=== PATIENT | female | born 1985 | race Caucasian/White ===

== ENCOUNTER 2016-09-27 07:20 | Inpatient (IN) | payer OTHER ==
[2016-09-27 08:21] VITALS: BMI 32.5
[2016-09-27] MEDS ORDERED: morphine SULFATE/Preservative Free 0.5 MG/ML (1cc Syringe) SPIN ONE (11:06)
[2016-09-27] MEDS ORDERED: ONDANSETRON 4 MG/2 ML VIAL IVPB PRN (11:06)
[2016-09-27] MEDS ORDERED: ACETAMINOPHEN 1000 MG/100 ML VIAL (NON FORMULARY) IVPB ONE (11:52)
[2016-09-27] MEDS ORDERED: ELECTROLYTE-148 SOLN 1,000 ML IV ONE (11:56)
[2016-09-27] MEDS ORDERED: OXYTOCIN 20 UNITS in 0.9% NS 1,000 ML IV ONE ×2 (11:58→12:29)
[2016-09-27] MEDS ORDERED: METHYLERGONOVINE MALEATE 0.2 MG/1 ML AMP IM PRN (14:05)
[2016-09-27] MEDS ORDERED: IBUPROFEN 800 MG/8 ML IJ IVPB PRN (14:05)
--- NOTE | 2016-09-27 14:13 | HP ---
Past Medical History - Primary Care Physician PCP:: Huseyin Castillo - Admission Chief Complaint: 31 yo P1 with at EGA 39w1d admitted for repeat LTC/S. History of Present Illness: Pt is not in labor. complicated by GDM A2 Previous C/S, declined . Hypothyroidism History Source: Patient, Medical Record Limitations to Obtaining History: No Limitations - Past Medical History REHABILITATION CLERK: No: Alzheimer's, CVA, Dementia, Migraine, Multiple Sclerosis, Peripheral Neuropathy, Parkinson's, Seizure, Syncope, TIA, Vertigo, Other Cardiovascular: No: AFIB, Aneurysm, Aortic Insufficiency, Aortic Stenosis, CAD, CHF, Deep Vein Thrombosis, HTN, Hyperlipdemia, PR, Mitral Insufficiency, Mitral Stenosis, Murmur, Pulmonary Hypertension, Other Pulmonary: No: Asthma, Bronchitis, Cancer, COPD, O2 Dependent, Pneumonia, Previously Intubated, Pulmonary Embolus, Pulmonary Fibrosis, Sleep Apnea, Other Gastrointestinal: No: Ascites, Cancer, Constipation, Crohn's Disease, Diverticulitis, Diverticulosis, Esophageal Varices, Gastritis, GERD, GI Bleed, Hemorrhoids, Hiatal Hernia, Inflamatory Bowel Disease, Irritable Bowel Disease, Pancreatitis, Peptic Ulcer Disease, Ulcerative Colitis, Other Hepatobiliary: No: Cirrhosis, Cholelithiasis, Cholecystitis, Choledocholithiasis , Hepatitis A, Hepatitis B, Hepatitis C, Other Renal/: No: Renal Failure, Renal Inusuff, BPH, Cancer, Hematuria, Hemodialysis , Neurogenic Bladder, Renal Calculi, UTI, Other ...: 2 ...Para: 1 ...Term: 1 ...: 0 ...Spon : 0 ...Induced : 0 ...Multiple Gestation: 0 ...EDC by Sono: 10/03/16 Heme/Onc: Yes: Anemia Infectious Disease: No: AIDS, C-Diff, Herpes Zoster, HIV, MRSA, STD's, Tuberculosis, VREF, Other Psych: No: Addictions, Anxiety, Bipolar, Depression, Panic, Psychosis, Schizophrenia, Other Musculoskeletal: No: Bursitis, Chronic low back pain, Hemiparesis, Hemiplegia, Osteoarthritis, Paraplegia, Other Rheumatology: No: Fibromyalgia, Gout, Lupus, Rheumatoid Arthritis, Sarcoidosis, Vasculitis, Other ENT: No: Allergic Rhinitis, Sinusitis, Other Endocrine: Yes: Diabetes Mellitus (GDM A2) Dermatology: No: Basal Cell, Cellulitis, Eczema, Melanoma, Psoriasis, Squamous Cell, Other - Past Surgical History Past Surgical History: Yes: (x 1) Hx Myomectomy: No Hx Transabdominal Cerclage: No - Smoking History Smoking history: Never smoked Have you smoked in the past 12 months: No Aproximately how many cigarettes per day: 1 - Alcohol/Substance Use Hx Alcohol Use: No History of Substance Use: reports: None - Social History Usual Living Arrangement: Yes: With Spouse, With Child ADL: Independent 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 History of Recent Travel: No Home Medications - Allergies Allergies/Adverse Reactions: Allergies Allergy/AdvReac Type Severity Reaction Status Date / Time No Known Allergies Allergy Verified 09/27/16 08:32 - Home Medications Home Medications: Ambulatory Orders Levothyroxine [Synthroid -] 25 mcg PO DAILY 08/19/15 Family Disease History - Family Disease History Family History: Unremarkable Review of Systems - Review of Systems Constitutional: reports: No Symptoms Eyes: reports: No Symptoms HENT: reports: No Symptoms Neck: reports: No Symptoms Cardiovascular: reports: No Symptoms Respiratory: reports: No Symptoms Gastrointestinal: reports: No Symptoms Genitourinary: reports: No Symptoms Breasts: reports: No Symptoms Reported Musculoskeletal: reports: No Symptoms Integumentary: reports: No Symptoms Neurological: reports: No Symptoms Endocrine: reports: No Symptoms Hematology/Lymphatic: reports: No Symptoms Psychiatric: reports: No Symptoms Pain Intensity: 0 Physical Exam - Maternity Vital Signs: Vital Signs Temperature 97.8 F 09/27/16 13:35 Pulse Rate 85 09/27/16 13:35 Respiratory Rate 18 09/27/16 13:35 Blood Pressure 126/70 09/27/16 13:35 O2 Sat by Pulse Oximetry (%) 100 09/27/16 11:45 Constitutional: Yes: Well Nourished, No Distress, Calm Eyes: Yes: WNL, Conjunctiva Clear HENT: Yes: WNL, Atraumatic, Normocephalic Neck: Yes: WNL, Supple, Trachea Midline Cardiovascular: Yes: WNL, Regular Rate and Rhythm Lungs: Clear to auscultation, Normal air movement - Abdominal Exam/OB Number of Fetuses: Single Presentation: Vertex Contractions: No Category: I Accelerations: Uniform Decelerations: None - Vaginal Exam/OB Vaginal Bleediing: No Speculum Exam: No Amniotic Membrane Status: Intact Presentation: Vertex/Position - Physical Exam Musculoskeletal: Yes: WNL Extremities: Yes: WNL Edema: Yes Edema: LLE: Trace, RLE: Trace Integumentary: Yes: WNL Deep Tendon Reflex Grade: Normal +2 ...Motor Strength: WNL Psychiatric: Yes: WNL, Alert, Oriented Hemorrhage Risk Assessment - Risk Factors Medium Risk Factors: Yes: Prior , uterine surgery,or multiple laparotomies High Risk Factors: Yes: None Risk Score: 1 Risk Level: Medium Risk Imaging - Results Ultrasound: Report Reviewed Problem List - Problems (1) Previous delivery, antepartum condition or complication Assessment/Plan: Pt requested repeat C/S. Risks, benefits, alternatives of surgery discussed. Risks of infection, bleeding, pain, injury to underlying organs and/or structures explained. Code(s): O34.219 - MATERNAL CARE FOR UNSP TYPE SCAR FROM PREVIOUS DEL (2) White classification A2 gestational diabetes mellitus (GDM) Assessment/Plan: Monitor antepartum and . Neonatology notified. Plan to monitor off insulin . Code(s): O24.414 - GESTATIONAL DIABETES IN , INSULIN CONTROLLED (3) Hypothyroidism affecting Assessment/Plan: Will continue Synthroid . Code(s): O99.280 - ENDO, NUTRITIONAL AND METAB DISEASES COMP PREG, UNSP TRI E03.9 - HYPOTHYROIDISM, UNSPECIFIED
--- NOTE | 2016-09-27 14:31 | OP ---
Operative Note - Note: Operative Date: 09/27/16 Pre-Operative Diagnosis: at EGA 39w1d. Previous C/S. GDM A2. Hypothyroidism Operation: Repeat LT C/S Findings: Live baby boy in vtx presentation, no meconium in amniotic fluid. 9/9. Normal uterus, tubes, ovaries. Post-Operative Diagnosis: Same as Pre-op Surgeon: Huseyin Castillo Rest Room Matron: Prashanth Prakash Anesthesiologist/PATIENT REGISTRATION CLERK: Carolina Vital MD Anesthesia: Spinal Specimens Removed: Placenta Estimated Blood Loss (mls): 1,000 Drains & Tubes with Location: Meyers cath Drains, Volume Out (mls): 200 Blood Volume Replaced (mls): 0 Fluid Volume Replaced (mls): 2,200 Operative Report Dictated: Yes
[2016-09-27] MEDS ORDERED: TUBERCULIN PPD 5 TU/0.1ML SYRINGE (IN PATIENT USE ONLY) ID ONE (19:00)
[2016-09-28] MEDS: LEVOTHYROXINE NA 25 MCG TABLET (FP) PO SCH (06:32)
[2016-09-28] MEDS: IBUPROFEN 600 MG TABLET (FP) PO PRN ×4 (06:35→22:19)
[2016-09-28] MEDS: SIMETHICONE 80 MG TAB.CHEW (FP) PO PRN ×3 (06:35→17:32)
[2016-09-28] MEDS: ACETAMINOPHEN 325 MG TABLET (FP) PO PRN ×4 (06:36→22:19)
--- NOTE | 2016-09-28 07:27 | OP ---
DATE OF OPERATION: 09/27/2016 PREOPERATIVE DIAGNOSIS: at estimated gestational age of 39 weeks 1 day, previous section. Patient declined vaginal after . POSTOPERATIVE DIAGNOSIS: at estimated gestational age of 39 weeks 1 day, previous section. Patient declined vaginal after . Delivered. PROCEDURE: Repeat low transverse section via Pfannenstiel skin incision. SURGEON: Huseyin Castillo MD SHOWCASE MAKER: Prashanth Prakash MD COMPLICATIONS: None. ESTIMATED BLOOD LOSS: 1000 mL. URINE OUTPUT: 200 mL. IV FLUIDS: 200 mL crystalloid. PATHOLOGY: Placenta. FINDINGS: A live baby boy in vertex presentation. No meconium in amniotic fluid. Normal uterus, ovaries, and fallopian tubes. Apgars 9/9. DESCRIPTION OF PROCEDURE: The patient was met preoperatively. Risks, benefits, and alternatives of surgery were discussed in detail. All questions were answered. The patient was then brought to the OR with the IV running. She was placed on the surgical table in a sitting position. The spinal anesthesia was achieved without difficulty. The patient was then placed in a supine position with a leftward tilt. The level of the spinal anesthesia was checked by the anesthesiologist, Dr. Vital. Once the level of anesthesia was confirmed and found to be adequate, the patient was prepped and draped in the usual sterile fashion. A Meyers catheter was left to drain to gravity. The time-out procedure was conducted as per standard protocol. The surgeons then proceeded with the operation. A Pfannenstiel skin incision was made with the knife along the prior scar. The incision was carried down to the level of the fascia. The fascia was incised in the midline, and the incision was extended bilaterally. The fascia was dissected away from the rectus muscles superiorly and inferiorly. The rectus muscles were in the midline. The peritoneum was identified and entered sharply. The peritoneal incision was then extended superiorly and inferiorly using Metzenbaum scissors. The bladder peritoneum was dissected away from the lower uterine segment using sharp dissection. The bladder was reflected downwards. The uterus was incised transversely in the lower uterine segment. The incision was extended bilaterally using bandage scissors. The amniotic bag was ruptured, and clear amniotic fluids were noted. The baby was delivered from vertex presentation without complications. The umbilical cord was clamped and cut. The baby was handed to the awaiting informatics nurse specialist. The umbilical cord blood was then collected for the patient as per patient's request. A segment of the umbilical cord was also submitted as per patient request. The placenta was then delivered without complications. The uterus was cleared of all clot and debris. The uterine incision was repaired using a 0 Biosyn suture with a running and locking stitch. Good hemostasis was noted. The uterus incision was then imbricated using a secondary level of closure with the Biosyn suture. Once again, good hemostasis was noted. The bladder peritoneum was approximated using a 0 Biosyn suture. The operative site was irrigated using copious amounts of normal saline. The saline was aspirated, and once again, good hemostasis was confirmed. The peritoneum was then closed using a 2-0 chromic suture with a running stitch. The rectus muscles were approximated using several interrupted 2-0 chromic sutures. The fascia was closed using a 0 Vicryl suture in 2 segments with good hemostasis and approximation. The subcutaneous adipose tissues were closed using several interrupted 2-0 chromic sutures to eliminate space. The skin was closed with a 4-0 Vicryl suture using a subcutaneous stitch. Sponge, lap, and instrument counts were correct. The patient was transferred to the recovery room in stable condition. Aundrea [id number]
--- NOTE | 2016-09-28 08:11 | PN ---
Progress Note (short form) - Note Progress Note: Anesthesia/Pain Pt seen and examined S:alert and awake, comfortable O: Vital Signs Temperature 98 F 09/28/16 07:49 Pulse Rate 73 09/28/16 07:49 Respiratory Rate 20 09/28/16 07:49 Blood Pressure 98/77 09/28/16 07:49 O2 Sat by Pulse Oximetry (%) 100 09/27/16 11:45 Current Active Problems Hypothyroidism affecting (Acute) Previous delivery, antepartum condition or complication (Acute) Previous delivery, delivered (Acute) White classification A2 gestational diabetes mellitus (GDM) (Acute) A/P:s/p c section Doing well post op Continue current care Jaquan Parmar MD
[2016-09-28 08:51] LABS: BASOPHIL 0.2 % (0-2.0); EOSINOPHIL 0.2 % (0-4.5); MCH 28.3 pg (25.7-33.7); MEAN CELL VOLUME 85.8 fl (80-96); MEAN PLT VOLUME 7.6 fl (7.5-11.1); NEUTROPHILS 74.6 % (42.8-82.8); PLATELET COUNT 172 K/MM3 (134-434); RDW 15.1 % (11.6-15.6); WHITE BLOOD COUNT 12.5 K/mm3 (4.0-10.0)
[2016-09-28] MEDS: PRENATAL VITAMINS W/ FOLIC ACID TABLET (FP) PO SCH (09:10)
--- NOTE | 2016-09-28 10:27 | PN ---
Post Progress Note - Subjective Subjective: Patient without acute complaints. Reports tolerating clears intake without nausea or vomiting. Ambulating without dizziness. Denies fevers or chills. Pain well controlled with oral pain medication. Bottle feeding. Passing flatus. Post Day: 1 Type of Delivery: Repeat C/S Vital Signs: Vital Signs Temperature 98 F 09/28/16 07:49 Pulse Rate 73 09/28/16 07:49 Respiratory Rate 20 09/28/16 09:00 Blood Pressure 98/77 09/28/16 07:49 O2 Sat by Pulse Oximetry (%) 100 09/27/16 11:45 Breast Exam: Yes: Engorged Uterus: Yes: Fundus Firm, Fundus below umbilicus Incision: Yes: Sutures intact. No: Redness, Oozing Abdomen/GI: Yes: Abdomen soft, Tolerating PO. No: Abdominal Distention, Tender Lochia: Yes: Serosa Lochia, amount: Small Extremities: Yes: Calves non-tender, Edema Activity: Ambulating - Labs Labs: CBC WBC 12.5 K/mm3 (4.0-10.0) H D 09/28/16 07:00 RBC 3.18 M/mm3 (3.60-5.2) L 09/28/16 07:00 Hgb 9.0 GM/dL (10.7-15.3) L D 09/28/16 07:00 Hct 27.3 % (32.4-45.2) L 09/28/16 07:00 MCV 85.8 fl (80-96) 09/28/16 07:00 MCHC 33.0 g/dl (32.0-36.0) 09/28/16 07:00 RDW 15.1 % (11.6-15.6) 09/28/16 07:00 Plt Count 172 K/MM3 (134-434) 09/28/16 07:00 MPV 7.6 fl (7.5-11.1) 09/28/16 07:00 Neutrophils % 74.6 % (42.8-82.8) 09/28/16 07:00 Lymphocytes % 17.9 % (8-40) 09/28/16 07:00 Monocytes % 7.1 % (3.8-10.2) 09/28/16 07:00 Eosinophils % 0.2 % (0-4.5) 09/28/16 07:00 Basophils % 0.2 % (0-2.0) 09/28/16 07:00 Assessment/Plan 31 yo POD # 1 s/p repeat delivery, afebrile, vital signs stable, doing well 1. Continue routine postoperative care. 2. AM CBC with mild anemia, will start ferrous sulfate 3. Rh positive status, no rhogam indicated. 4. Encourage ambulation and incentive spirometer use 5. Continue oral pain medication 6. Anticipate discharge home postoperative day #3 or #4
[2016-09-28] MEDS: oxyCODONE HCL 5 MG TABLET PO PRN ×3 (12:25→22:19)
[2016-09-28] MEDS ORDERED: BISACODYL 10 MG SUPP.RECT RC PRN (14:05)
[2016-09-28] MEDS: FERROUS SO4 325 MG TABLET (FP) PO SCH (22:19)
[2016-09-29] MEDS: LEVOTHYROXINE NA 25 MCG TABLET (FP) PO SCH (06:34)
[2016-09-29] MEDS: ACETAMINOPHEN 325 MG TABLET (FP) PO PRN ×4 (06:39→23:02)
[2016-09-29] MEDS: IBUPROFEN 600 MG TABLET (FP) PO PRN ×4 (06:40→23:02)
[2016-09-29] MEDS: oxyCODONE HCL 5 MG TABLET PO PRN ×4 (06:40→23:02)
[2016-09-29] MEDS: PRENATAL VITAMINS W/ FOLIC ACID TABLET (FP) PO SCH (09:12)
[2016-09-29] MEDS: FERROUS SO4 325 MG TABLET (FP) PO SCH ×2 (09:12→21:23)
[2016-09-29] MEDS ORDERED: DIPHTH,PERTUSS(ACELL),TET 0.5 ML DISP.SYRIN IM ONE (10:00)
[2016-09-29] MEDS ORDERED: DOCUSATE SODIUM 100 MG CAPSULE (FP) PO PRN (10:28)
--- NOTE | 2016-09-29 10:30 | PN ---
Post Progress Note - Subjective Subjective: Patient without acute complaints. Reports tolerating oral intake without nausea or vomiting. Ambulating without dizziness. Denies fevers or chills. Pain well controlled with oral pain medication. without difficulty. Passing flatus. Post Day: 2 Type of Delivery: Repeat C/S Vital Signs: Vital Signs Temperature 97.7 F 09/29/16 08:47 Pulse Rate 78 09/29/16 08:47 Respiratory Rate 20 09/29/16 08:47 Blood Pressure 108/65 09/29/16 08:47 O2 Sat by Pulse Oximetry (%) 100 09/27/16 11:45 Breast Exam: Yes: Engorged Uterus: Yes: Fundus Firm Incision: Yes: Sutures intact. No: Redness, Oozing Abdomen/GI: Yes: Abdomen soft, Passing flatus, Tolerating PO. No: Abdominal Distention, Tender Lochia: Yes: Serosa Extremities: Yes: Calves non-tender, Edema (tr) Activity: Ambulating - Labs Labs: CBC WBC 12.5 K/mm3 (4.0-10.0) H D 09/28/16 07:00 RBC 3.18 M/mm3 (3.60-5.2) L 09/28/16 07:00 Hgb 9.0 GM/dL (10.7-15.3) L D 09/28/16 07:00 Hct 27.3 % (32.4-45.2) L 09/28/16 07:00 MCV 85.8 fl (80-96) 09/28/16 07:00 MCHC 33.0 g/dl (32.0-36.0) 09/28/16 07:00 RDW 15.1 % (11.6-15.6) 09/28/16 07:00 Plt Count 172 K/MM3 (134-434) 09/28/16 07:00 MPV 7.6 fl (7.5-11.1) 09/28/16 07:00 Neutrophils % 74.6 % (42.8-82.8) 09/28/16 07:00 Lymphocytes % 17.9 % (8-40) 09/28/16 07:00 Monocytes % 7.1 % (3.8-10.2) 09/28/16 07:00 Eosinophils % 0.2 % (0-4.5) 09/28/16 07:00 Basophils % 0.2 % (0-2.0) 09/28/16 07:00 Assessment/Plan 31 yo POD # 2 s/p repeat delivery, afebrile, vital signs stable, doing well 1. Continue routine postoperative care. 2. Encourage ambulation and incentive spirometer use 3. Continue oral pain medication 4. Anticipate discharge home postoperative day #3 or #4
[2016-09-29] MEDS: SIMETHICONE 80 MG TAB.CHEW (FP) PO PRN ×3 (13:27→23:02)
[2016-09-30] MEDS: ACETAMINOPHEN 325 MG TABLET (FP) PO PRN ×4 (05:34→21:15)
[2016-09-30] MEDS: IBUPROFEN 600 MG TABLET (FP) PO PRN ×4 (05:34→21:16)
[2016-09-30] MEDS: oxyCODONE HCL 5 MG TABLET PO PRN ×3 (05:35→21:16)
[2016-09-30] MEDS: SIMETHICONE 80 MG TAB.CHEW (FP) PO PRN ×4 (05:35→21:15)
[2016-09-30] MEDS: LEVOTHYROXINE NA 25 MCG TABLET (FP) PO SCH (06:04)
[2016-09-30 07:40] LABS: BASOPHIL 0.4 % (0-2.0); EOSINOPHIL 1.4 % (0-4.5); MCH 28.5 pg (25.7-33.7); MCHC 33.1 g/dl (32.0-36.0); MEAN CELL VOLUME 86.2 fl (80-96); MEAN PLT VOLUME 7.3 fl (7.5-11.1); NEUTROPHILS 69.7 % (42.8-82.8); PLATELET COUNT 182 K/MM3 (134-434); RDW 15.1 % (11.6-15.6); WHITE BLOOD COUNT 9.1 K/mm3 (4.0-10.0)
[2016-09-30] MEDS: FERROUS SO4 325 MG TABLET (FP) PO SCH ×2 (10:03→21:15)
[2016-09-30] MEDS: PRENATAL VITAMINS W/ FOLIC ACID TABLET (FP) PO SCH (10:03)
--- NOTE | 2016-09-30 10:14 | PN ---
Post Progress Note - Subjective Subjective: Patient without acute complaints. Reports tolerating oral intake without nausea or vomiting. Ambulating without dizziness. Denies fevers or chills. Pain well controlled with oral pain medication. Bottle feeding Passing flatus. Post Day: 3 Type of Delivery: Repeat C/S Vital Signs: Vital Signs Temperature 97.8 F 09/30/16 07:57 Pulse Rate 77 09/30/16 07:57 Respiratory Rate 18 09/30/16 07:57 Blood Pressure 125/56 09/30/16 07:57 O2 Sat by Pulse Oximetry (%) 100 09/27/16 11:45 Breast Exam: Yes: Engorged Uterus: Yes: Fundus Firm, Fundus below umbilicus Incision: Yes: Sutures intact. No: Redness, Oozing Abdomen/GI: Yes: Abdomen soft, Passing flatus, Tolerating PO. No: Tender Lochia: Yes: Serosa Lochia, amount: Small Extremities: Yes: Calves non-tender, Edema (trace) - Labs Labs: CBC WBC 9.1 K/mm3 (4.0-10.0) 09/30/16 06:15 RBC 3.09 M/mm3 (3.60-5.2) L 09/30/16 06:15 Hgb 8.8 GM/dL (10.7-15.3) L 09/30/16 06:15 Hct 26.6 % (32.4-45.2) L 09/30/16 06:15 MCV 86.2 fl (80-96) 09/30/16 06:15 MCHC 33.1 g/dl (32.0-36.0) 09/30/16 06:15 RDW 15.1 % (11.6-15.6) 09/30/16 06:15 Plt Count 182 K/MM3 (134-434) 09/30/16 06:15 MPV 7.3 fl (7.5-11.1) L 09/30/16 06:15 Neutrophils % 69.7 % (42.8-82.8) 09/30/16 06:15 Lymphocytes % 21.7 % (8-40) D 09/30/16 06:15 Monocytes % 6.8 % (3.8-10.2) 09/30/16 06:15 Eosinophils % 1.4 % (0-4.5) D 09/30/16 06:15 Basophils % 0.4 % (0-2.0) 09/30/16 06:15 Assessment/Plan 31 yo POD # 3 s/p repeat delivery, afebrile, vital signs stable, doing well 1. Continue routine postoperative care. 2. Encourage ambulation and incentive spirometer use 3. Continue oral pain medication 4. Anticipate discharge home postoperative day #4
[2016-10-01] MEDS: LEVOTHYROXINE NA 25 MCG TABLET (FP) PO SCH (06:30)
[2016-10-01] MEDS: IBUPROFEN 600 MG TABLET (FP) PO PRN ×2 (06:34→13:35)
[2016-10-01] MEDS: ACETAMINOPHEN 325 MG TABLET (FP) PO PRN ×2 (06:35→13:36)
[2016-10-01] MEDS: oxyCODONE HCL 5 MG TABLET PO PRN ×2 (06:35→13:36)
[2016-10-01 08:28] VITALS: BP 128/74; PULSE 74; TEMP 97.9
[2016-10-01] MEDS: PRENATAL VITAMINS W/ FOLIC ACID TABLET (FP) PO SCH (09:17)
[2016-10-01] MEDS: FERROUS SO4 325 MG TABLET (FP) PO SCH (09:17)
[2016-10-01] MEDS: SIMETHICONE 80 MG TAB.CHEW (FP) PO PRN (13:35)
--- NOTE | 2016-10-01 14:36 | DS ---
Physical Examination Vital Signs: Vital Signs Temperature 97.9 F 10/01/16 08:24 Pulse Rate 74 10/01/16 08:24 Respiratory Rate 20 10/01/16 08:24 Blood Pressure 128/74 10/01/16 08:24 O2 Sat by Pulse Oximetry (%) 100 09/27/16 11:45 Labs: CBC, BMP 09/30/16 06:15 Discharge Summary Reason For Visit: SECTION Current Active Problems Hypothyroidism affecting (Acute) Previous delivery, antepartum condition or complication (Acute) Previous delivery, delivered (Acute) White classification A2 gestational diabetes mellitus (GDM) (Acute) Condition: Good - Instructions Diet, Activity, Other Instructions: Physical activity Resume your normal everyday activity as tolerated no heavy lifting or exercise until seen by your surgeon. You may walk unlimited vero of and climb stairs. You may resume driving the car when you feel safe and comfortable behind the wheel. No sexual activity as instructed. Wound care If you have a bandage, leave it on, and keep dry for 48-72 hours. After that time discard the outer bandage. If they are tapes on the skin under the out of bandage leave them in place. They will peel off in the next 7 to 10 days. Do Not Peel them off. You may shower the day after surgery. If there are tapes present on the skin, you may shower over them. Diet There are no dietary restrictions. Eat healthy, high-fiber foods. Drink 6 to 8 glasses of liquid each day. This will assist in keeping your bowels are regular. Pain management You may take Tylenol or acetaminophen or Ibuprofen (for example, Motrin, Advil etc.) from my pain prescription medication is ordered should be taken as prescribed for moderate to severe pain. Call MD for any of the following: Severe pain not relieved by medication Fever of 101 or higher Excessive bleeding or drainage on dressing Inability to urinate Referrals: Huseyin Castillo MD [Staff Physician] - Disposition: HOME - Home Medications Comprehensive Discharge Medication List: Ambulatory Orders Levothyroxine [Synthroid -] 25 mcg PO DAILY 08/19/15
--- NOTE | 2016-10-02 14:07 | PATH ---
Surgical Pathology Report Patient Name: BELA AGUILLON Med. Rec. 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 Specimen(s) Received PLACENTA Clinical History , 39.6 weeks IUP, previous x1, ID GDM, hypothyroidism Repeat c/section Final Diagnosis PLACENTA, DELIVERY: FOCALLY DISRUPTED THIRD TRIMESTER PLACENTA WITH MILD INCREASE IN PREVILLOUS, PERIVILLOUS, AND PRECHORIONIC FIBRIN DEPOSITION, THREE VESSEL UMBILICAL CORD, AND PLACENTAL MEMBRANES WITH FOCAL AMNION HYPERPLASIA. Electronically Signed Marques Eckert M.D. Gross Description The specimen is received fresh, labeled "placenta" and is a 495 gram, 17.0 x 16.5 x 2.9 cm placenta with attached membranes and umbilical cord. The attached membranes are quinn, thickened and insert marginally. The umbilical cord measures 6 cm in length and averages 1.2 cm in diameter. The cord inserts eccentrically, 2.5 cm to the nearest margin. No true knots or strictures are identified. Cut surface of the umbilical cord reveals 3 vessels. The surface is jacobo-blue with fibrin deposition and appropriate caliber vessels. The maternal surface is red-brown with focal defects. Sectioning reveals red-brown, spongy parenchyma. No focal lesions are identified. Starch Mangle Tender sections are submitted in three cassettes as follows: 1- membrane rolls and umbilical cord; 2-3- full thickness sections of placenta. 10/01/2016 [facility]10/01/2016
== END 2016-10-01 15:15 | disposition home or self-care (01) | DRG 766 ==
LOC: JLDR 07:20 → J3W 12:30
PROVIDERS: ADMIT Obstetrics & Gynecology; ATTEND Obstetrics & Gynecology
PROC: 10D00Z1 Extraction of Products of Conception, Low, Open Approach (ICD-10-PCS; principal; 2016-09-27)
DX: O34.211 Maternal care for low transverse scar from previous cesarean delivery (principal); O24.424 Gestational diabetes mellitus in childbirth, insulin controlled; O99.284 Endocrine, nutritional and metabolic diseases complicating childbirth; E03.8 Other specified hypothyroidism; Z3A.39 39 weeks gestation of pregnancy; Z37.0 Single live birth
CPT/HCPCS: 36415; 85025; 88307-TC; 90715

== ENCOUNTER 2017-11-14 09:05 | Emergency (ER) | payer BC ==
[2017-11-14 09:14] VITALS: BMI 28.3
[2017-11-14] MEDS ORDERED: SODIUM CHLORIDE 1,000 ML IV STA (09:23)
[2017-11-14] MEDS ORDERED: morphine CARPU-JECT 4 MG/1 ML DISP.SYRIN IVPUSH ONE (09:36)
[2017-11-14] MEDS ORDERED: ONDANSETRON 4 MG/2 ML VIAL IVPUSH PRN (09:36)
--- NOTE | 2017-11-14 09:36 | PDOC ---
History of Present Illness - General Chief Complaint: Pain, Acute Stated Complaint: ABD PAIN, NAUSEA Time Seen by Provider: 11/14/17 09:22 History Source: Patient Exam Limitations: No Limitations - History of Present Illness Initial Comments: CHIEF COMPLAINT: 32 y/o afebrile female c/o abdominal pain with nausea and vomiting since yesterday. HISTORY OF PRESENT ILLNESS: The patient also admits to abdominal bloating. She states the pain is in her epigastric region and radiates around both sides and into her back. She denies fever but admits to chills. She denies cough, hemoptysis, hematemesis, CP, SOB, hematuria, dysuria, diarrhea, constipation. She has had her appendix removed. Vital signs on arrival are notable for pulse of 113. REVIEW OF SYSTEMS: GENERAL/CONSTITUTIONAL: No fever. +chills. No weakness. No weight change. HEAD, EYES, EARS, NOSE AND THROAT: No change in vision. No ear pain or discharge. No sore throat. CARDIOVASCULAR: No chest pain or shortness of breath. RESPIRATORY: No cough, wheezing, or hemoptysis. GASTROINTESTINAL: +nausea, vomiting, abdominal pain, abdominal bloating. No diarrhea or constipation. GENITOURINARY: No dysuria, frequency, or change in urination. MUSCULOSKELETAL: No joint or muscle swelling or pain. No neck or back pain. SKIN: No rash or easy bruising. NEUROLOGIC: No headache, vertigo, loss of consciousness, or loss of sensation. PHYSICAL EXAM: GENERAL: The patient is awake, alert, and fully oriented, in moderate discomfort. She appears sweaty. HEAD: Normal with no signs of trauma. ENT: Pupils equal, round and reactive to light, extraocular movements intact, sclera anicteric, conjunctiva clear. Neck supple. LUNGS: Clear to auscultation bilaterally. Normal excursion. No respiratory distress or use of accessory muscles. CV: RRR, S1/S2, no MRG. Cap refill < 2 sec. ABDOMEN: Distended abdomen with TTP of epigastric, RUQ and LUQ. Passive guarding. Negative mcdowell's sign. Normal BS x 4 quadrants. EXTREMITIES: Normal range of motion, no edema. NEUROLOGICAL: Normal speech, normal gait. CN II-XII grossly intact.. SKIN: Warm, dry, normal turgor, no rashes or lesions noted. Past History - Past Medical History Allergies/Adverse Reactions: Allergies Allergy/AdvReac Type Severity Reaction Status Date / Time No Known Allergies Allergy Verified 11/14/17 09:09 Home Medications: Ambulatory Orders Levothyroxine [Synthroid -] 125 mcg PO DAILY 08/19/15 Oxycodone HCl/Acetaminophen [Percocet 5-325 mg Tablet] 0.5 tab PO PRN 11/14/17 Phenobarb/Hyoscy/Atropine/Scop [ Tablet] 16.2 mg PO TID #20 tablet 11/14 Simethicone 125 mg PO TID #20 capsule 11/14/17 Asthma: No Cancer: No Cardiac Disorders: No COPD: No Diabetes: Yes (GDM- ID) Disorders: No HTN: Yes (PREECLAMPSIA- 2011) Seizures: No Thyroid Disease: Yes (HYPOTHYROIDISM) - Surgical History Appendectomy: Yes - Immunization History Immunization Up to Date: Yes - Suicide/Smoking/Psychosocial Hx Smoking Status: Yes Smoking History: Never smoked Have you smoked in the past 12 months: No Number of Cigarettes Smoked Daily: 3 Information on smoking cessation initiated: No Hx Alcohol Use: No Drug/Substance Use Hx: No Substance Use Type: None Hx Substance Use Treatment: No *Physical Exam - Vital Signs Last Vital Signs Temp Pulse Resp BP Pulse Ox 98.6 F 113 H 18 124/83 100 11/14/17 09:10 11/14/17 09:10 11/14/17 09:10 11/14/17 09:10 11/14/17 09:10 ED Treatment Course - LABORATORY CBC & Chemistry Diagram: 11/14/17 09:55 11/14/17 09:55 Medical Decision Making - Medical Decision Making A/P: 32 y/o female with symptoms of cholecystitis. Plan is as follows: 1. Labs 2. UA/hcg 3. Gallbladder ultrasound 4. IV fluids 5. IV zofran, pepcid, morphine Gallbladder ultrasound IMPRESSION: No evidence of pathology. CT scan abd/pelvis IMPRESSION: No evidence of acute pathology. *DC/Admit/Observation/Transfer Diagnosis at time of Disposition: Abdominal pain Qualifiers: Abdominal location: generalized Qualified Code(s): R10.84 - Generalized abdominal pain - Discharge Dispostion Condition at time of disposition: Improved - Referrals Referrals: Katie Mays MD [Staff Physician] - - Patient Instructions Printed Discharge Instructions: DI for Abdominal Pain-Adult Additional Instructions: Discharge instructions: -The Cat scan and ultrasound of your abdomen were both negative -2 prescriptions have been sent to your pharmacy; please take as prescribed -Follow up with your doctor and the referred GI doctor for further work up -Return to the ER with any worsening or concerning symptoms - Post Discharge Activity
[2017-11-14] MEDS ORDERED: morphine SULFATE 4 MG/ML VIAL ONE (09:38)
[2017-11-14] MEDS ORDERED: FAMOTIDINE 20 MG/50 ML IVPB 20 MG/50 ML MG IVPB ONE (09:38)
[2017-11-14] MEDS ORDERED: ONDANSETRON 4 MG/2 ML VIAL ONE (09:38)
[2017-11-14] MEDS ORDERED: FAMOTIDINE IV 20 MG/12 ML VIAL IVPUSH SCH (10:00)
[2017-11-14 10:10] LABS: BASO % 0.1 % (0-2.0); EOS % 0.2 % (0-4.5); HEMATOCRIT 40.6 % (32.4-45.2); HEMOGLOBIN 14.2 GM/dL (10.7-15.3); LYMPH % 7.2 % (8-40); MCH 30.8 pg (25.7-33.7); MEAN PLT VOLUME 8.1 fl (7.5-11.1); MONO % 4.5 % (3.8-10.2); PLATELET COUNT 242 K/MM3 (134-434); RBC 4.62 M/mm3 (3.60-5.2); RDW 13.5 % (11.6-15.6); WHITE BLOOD COUNT 10.5 K/mm3 (4.0-10.0)
[2017-11-14 10:25] LABS: ALBUMIN 3.8 g/dl (3.4-5.0); ALK PHOS 59 U/L (45-117); ANION GAP 6 (8-16); BILIRUBIN,TOTAL 0.5 mg/dL (0.2-1.0); BLOOD UREA NITROGEN 13 mg/dL (7-18); CALCIUM 8.3 mg/dL (8.5-10.1); CHLORIDE 105 mmol/L (98-107); CO2 26 mmol/L (21-32); CREATININE 0.6 mg/dL (0.55-1.02); GLUCOSE,RANDOM 105 mg/dL (74-106); LIPASE 147 U/L (73-393); POTASSIUM 3.9 mmol/L (3.5-5.1); SGOT/AST 12 U/L (15-37); SGPT/ALT 17 U/L (12-78); SODIUM 137 mmol/L (136-145); TOT PROT 7.1 g/dl (6.4-8.2)
[2017-11-14 10:27] LABS: INR 1.13 (0.82-1.09); PROTHROMBIN TIME (PATIENT) 12.8 SEC (9.7-13.0)
[2017-11-14 10:30] LABS: ACTIVATED PTT 37.6 SECONDS (26.9-34.4)
[2017-11-14 12:18] LABS: HCG,QUALITATIVE URINE NEGATIVE
[2017-11-14 12:20] LABS: URINE APPEARANCE SLCLOUDY; URINE BILIRUBIN NEGATIVE (<2.0 mg/dL); URINE COLOR YELLOW; URINE GLUCOSE (UA) NEGATIVE (NEGATIVE); URINE KETONE NEGATIVE (NEGATIVE); URINE LEUK ESTERASE NEGATIVE (NEGATIVE); URINE NITRITE NEGATIVE (NEGATIVE); URINE PROTEIN NEGATIVE (NEGATIVE); URINE UROBILINOGEN NEGATIVE mg/dL (0.2-1.0)
[2017-11-14] MEDS ORDERED: MAG HYDROX/AL HYDROX/SIMETH 30 ML UNIT-DOSE CUP PO ONE (14:13)
[2017-11-14] MEDS ORDERED: ACETAMINOPHEN 1000 MG/100 ML VIAL (NON FORMULARY) IVPB ONE (14:13)
[2017-11-14] MEDS ORDERED: SODIUM CHLORIDE 0.9% 1000 ML INFUS.BAG IV ONE (14:13)
[2017-11-14] MEDS ORDERED: ACETAMINOPHEN INJECTION 100 ML IVPB ONE (14:20)
[2017-11-14] MEDS ORDERED: MAG HYDROX/AL HYDROX/SIMETH 30 ML UNIT-DOSE CUP ONE (14:20)
[2017-11-14 16:18] VITALS: BP 128/61; PULSE 89; TEMP 98.3
== END 2017-11-14 16:20 | disposition home or self-care (01) ==
LOC: JER 09:05
PROC: 3E033NZ Introduction of Analgesics, Hypnotics, Sedatives into Peripheral Vein, Percutaneous Approach (ICD-10-PCS; principal; 2017-11-14)
PROC: 3E033GC Introduction of Other Therapeutic Substance into Peripheral Vein, Percutaneous Approach (ICD-10-PCS; 2017-11-14)
PROC: 3E0337Z Introduction of Electrolytic and Water Balance Substance into Peripheral Vein, Percutaneous Approach (ICD-10-PCS; 2017-11-14)
DX: R10.84 Generalized abdominal pain (principal); E03.9 Hypothyroidism, unspecified; E11.9 Type 2 diabetes mellitus without complications; I10 Essential (primary) hypertension
CPT/HCPCS: 36415; 74176-TC; 76705-TC; 80053; 81003; 83690; 84703; 85025; 85610; 85730; 86850; 86900; 86901; 99285-25; J0131; J7030

== ENCOUNTER 2017-12-02 09:51 | Day surgery (SDC) | payer BC ==
[2017-12-02 11:36] VITALS: BMI 28.8
[2017-12-02] MEDS ORDERED: PROPOFOL 20 ML ONE ×2 (12:16)
[2017-12-02 12:46] VITALS: TEMP 97.6
[2017-12-02 15:51] VITALS: BP 118/77; PULSE 68
--- NOTE | 2017-12-03 15:48 | PATH ---
Surgical Pathology Report Patient Name: BELA AGUILLON [facility]. Rec. #: [id number] /Age/Gender: 1985 (Age: 32) / F Account: [id number] Location: ASU-ENDOSCOPY Taken: 12/02/2017 Received: 12/02/2017 Reported: 12/03/2017 Physicians: Chad Kent D.O. Specimen(s) Received A: BX 2ND PORTION DUODENUM B: BX CARDIA POLYP C: BX BODY AND ANGULARIS Clinical History Abdominal pain Postoperative diagnosis: duodenal erosions, gastric polyp Final Diagnosis A. DUODENUM, SECOND PORTION: DUODENAL MUCOSAL SHOWING ACUTE AND CHRONIC DUODENITIS WITH EROSION. B. POLYP IN CARDIA, BIOPSY: GASTRIC MUCOSA WITH ACTIVE CHRONIC GASTRITIS AND LYMPHOID AGGREGATES. IMMUNOSTAIN IS NEGATIVE FOR H. PYLORI ORGANISMS. C. BODY AND ANGULARIS, BIOPSY: GASTRIC MUCOSA WITH CHRONIC GASTRITIS AND LYMPHOID AGGREGATES. POSITIVE FOR INTESTINAL METAPLASIA. IMMUNOSTAIN IS NEGATIVE FOR H. PYLORI ORGANISMS. Electronically Signed Sarahi Pena M.D. Gross Description A. Received in formalin, labeled "biopsy second portion of duodenum" are 2 quinn, irregular portions of soft tissue averaging 0.3 cm. in greatest dimension. The specimens are submitted in toto in one cassette. B. Received in formalin, labeled "biopsy polyp in cardia" are 3 quinn, irregular portions of soft tissue averaging 0.3 cm. in greatest dimension. The specimens are submitted in toto in one cassette. C. Received in formalin, labeled "biopsy angularis/body" are 2 quinn, irregular portions of soft tissue measuring 0.2 and 0.5 cm. in greatest dimension. The specimens are submitted in toto in one cassette. /12/02/2017 [facility]/12/02/2017
== END 2017-12-02 13:50 | disposition home or self-care (01) ==
LOC: JASU-ENDO 09:51
PROVIDERS: ATTEND Internal Medicine Gastroenterology
PROC: 0DB68ZX Excision of Stomach, Via Natural or Artificial Opening Endoscopic, Diagnostic (ICD-10-PCS; 2017-12-02)
PROC: 0DB98ZX Excision of Duodenum, Via Natural or Artificial Opening Endoscopic, Diagnostic (ICD-10-PCS; principal; 2017-12-02 11:15)
DX: K31.7 Polyp of stomach and duodenum (principal); K29.50 Unspecified chronic gastritis without bleeding
CPT/HCPCS: 84703; 88305-TC; 88342-TC

== ENCOUNTER 2019-05-06 10:00 | Day surgery (SDC) | payer BC ==
[~2019-05-06 10:00] MED LIST: FERRIC CARBOXYMALTOSE 750 MG in SODIUM CHLORIDE 250 ML IVPB ONE
[2019-05-06 14:45] VITALS: BP 122/76; PULSE 76; TEMP 98.2
== END 2019-05-06 12:00 | disposition home or self-care (01) ==
LOC: JINFUSION 10:00
PROVIDERS: ATTEND Family Medicine
PROC: 3E033GC Introduction of Other Therapeutic Substance into Peripheral Vein, Percutaneous Approach (ICD-10-PCS; principal; 2019-05-06)
DX: D64.9 Anemia, unspecified (principal)
CPT/HCPCS: 81025; 96365; J1439

== ENCOUNTER 2019-05-13 09:50 | Day surgery (SDC) | payer BC ==
[2019-05-13] MEDS ORDERED: FERRIC CARBOXYMALTOSE 750 MG in SODIUM CHLORIDE 250 ML IVPB ONE (10:00)
[2019-05-13 12:20] VITALS: BP 130/63; PULSE 92; TEMP 99
== END 2019-05-13 12:10 | disposition home or self-care (01) ==
LOC: JINFUSION 09:50
PROVIDERS: ATTEND Family Medicine
PROC: 3E033GC Introduction of Other Therapeutic Substance into Peripheral Vein, Percutaneous Approach (ICD-10-PCS; principal; 2019-05-13)
DX: D64.9 Anemia, unspecified (principal)
CPT/HCPCS: 81025; 96365; J1439

== ENCOUNTER 2020-04-23 11:21 | Emergency (ER) | payer BC ==
[2020-04-23 11:27] VITALS: BP 143/92; PULSE 93; TEMP 98
--- OUTSIDE RECORDS SUMMARY | 2020-04-23 11:40 | XMS ---
:1985 [facility] Providers Name Role Phone BRITT Lozano Unavailable Unavailable BRITT Lozano Unavailable Unavailable YULISSA Martinez Unavailable Unavailable KUNAL Noguera Unavailable Unavailable MD Kevin Unavailable Unavailable Ariadne Mackay MD Unavailable Unavailable Re-disclosure Warning The records that you are about to access may contain information from federally- assisted alcohol or drug abuse programs. If such information is present, then the following federally mandated warning applies: This information has been disclosed to you from records protected by federal confidentiality rules (42 CFR part 2). The federal rules prohibit you from making any further disclosure of this information unless further disclosure is expressly permitted by the written consent of the person to whom it pertains or as otherwise permitted by 42 CFR part 2. A general authorization for the release of medical or other information is NOT sufficient for this purpose. The Federal rules restrict any use of the information to criminally investigate or prosecute any alcohol or drug abuse patient.The records that you are about to access may contain highly sensitive health information, the redisclosure of which is protected by Article 27-F of the [facility] Public Health law. If you continue you may haveaccess to information: Regarding HIV / AIDS; Provided by facilities licensed or operated by the [facility] Office of Mental Health; or Provided by the [facility] Office for People With Developmental Disabilities. If such information is present, then the following [facility] mandated warning applies: This information has been disclosed to you from confidential records which are protected by state law. State law prohibits you from making any further disclosure of this information without the specific written consent of the person to whom it pertains, or as otherwise permitted by law. Any unauthorized further disclosure in violation of state law may result in a fine or long term sentence or both. A general authorization for the release of medical or other information is NOT sufficient authorization for further disclosure. Allergies and Adverse Reactions Type Description Substance Reaction Status Data Source(s ) Drug allergy No Known Allergies No Known none UNKNOWN [facility] [place] [facility] Hospital Encounters Encounter Providers Location Date Indications Data Source(s ) Outpatient Attender: Geraldine 12/10/[address] [facility] bryan Mackay MD 11:00:00 AM MYELOGRAM,LUMBAR Hospita l EDT FUSION CT LUMBAR MYELOGRAM,LUMBAR FUSION Inpatient Attender: Geraldine 05/28/2019 10:00:00 HERNIATED LUMBAR Tressa Mackay MDAdmitter: AM EST - 06/01/2019 [facility] ICAL DISC Hospital Geraldine Mackay MD 12:15:00 PM EST HERNIATED LUMBAR AND CERVICAL DISC Patient discharged. Inpatient Attender: Shannon Martinez 05/19/2019 12:03:00 BACK PA IN [place] NPAttender: Isaias Brown EST - 05/22/2019 Hospital MDAttender: Harry 01:35:00 [facility] DepartmentaAdmitter: Jaime DE LA TORRE BACK PAIN Patient discharged. P Attender: Geraldine 05/14/2019 07:45:00 HERNIATED LUMBAR Tressa Mackay MDAdmitter: AM EST DISC 2) HERNIATED Hospital Geraldine Mackay MD CERVICAL DISC HERNIATED LUMBAR DISC 2) HERNIATED CERVI BREANNA DISC Admission cancelled. Disregard status an d admitted date. Outpatient Attender: Geraldine 05/07/2019 10:42:00 PRE-OP HER NIATED Tressa Mackay MD AM EDT LUMBAR DISC Hospital PRE-OP HERNIATED LUMBAR DISC Functional Status Medications Medication Brand Start Product Dose Route Administrative Pharmacy [facility] Indications Reaction Description Data Name Date Form Instructions Instructions Source(s) Methylpredn Methyl 11/25/ 24 mg ORAL complet [facility] isolone predni 2019 ed [place] solone 04:07: Hospital 00 PM EST Oxycodone Oxycod 11/25/ TABLET mg ORAL complet W bc Hydrochlori one 2018 ed [place] de 5 MG Hcl 04:07: Hospital Oral Tablet 00 PM Oxycodone EST Hcl gabapentin Gabape 25/ CAPSULE 300 ORAL complet [facility] 300 MG Oral ntin 2019 mg ed [place] Capsule 04:07: Hospital [Neurontin] 00 PM Gabapentin EST Hydromorpho Hydrom 11/16/ TABLET 2 mg ORAL complet [facility] ne orphon 2018 ed [place] Hydrochlori e Hcl 10:33: Hospi farhan de 2 MG 00 AM Oral Tablet EST [Dilaudid] Hydromorpho ne Hcl Hydromorpho Hydrom /16/ TABLET 2 mg ORAL complet [facility] ne orphon 2018 ed [place] Hydrochlori e Hcl 10:33: Hospi farhan de 2 MG 00 AM Oral Tablet EST [Dilaudid] Hydromorpho ne Hcl Docusate Docusa 05/22/ CAPSULE 100 ORAL complet W bc Sodium 100 te 2019 mg ed [place] MG Oral Sodium 10:32: Hospital Capsule 00 AM [DOK] EST sennosides, Sennos 11/16/ TABLET 2 ORAL complet [facility] INTERMEDIATE 8.6 MG ides 2019 {Caps ed [place] Oral Tablet 10:32: ule} Hospit al Sennosides 00 AM EST Cyclobenzap Cyclob 11/16/ TABLET 10 mg ORAL complet White rine enzapr 2018 ed [place] hydrochlori ine 10:32: Hospit al de 10 MG Hcl 00 AM Oral Tablet EST Cyclobenzap rine Hcl sennosides, Sennos 11/16/ TABLET 2 ORAL complet [facility] INTERMEDIATE 8.6 MG ides 2019 {Caps ed [place] Oral Tablet 10:32: ule} Hospit al Sennosides 00 AM EST Cyclobenzap Cyclob 11/16/ TABLET 10 mg ORAL complet [facility] rine enzapr 2019 ed [place] hydrochlori ine 10:32: Hospit al de 10 MG Hcl 00 AM Oral Tablet EST Cyclobenzap rine Hcl Docusate Docusa /16/ CAPSULE 100 ORAL complet W bc Sodium 100 te 2019 mg ed [place] MG Oral Sodium 10:32: Hospital Capsule 00 AM [DOK] EST Acetaminoph Oxycod TABLET complet W bc en 325 MG / one/Ac ed [place] Oxycodone etamin Hospital Hydrochlori ophen de 5 MG Oral Tablet [Percocet] Oxycodone/A cetaminophe n Acetaminoph Oxycod TABLET complet W bc en 325 MG / one/Ac ed [place] Oxycodone etamin Hospital Hydrochlori ophen de 5 MG Oral Tablet [Percocet] Oxycodone/A cetaminophe n Acetaminoph Oxycod TABLET 1 ORAL complet W bc en 325 MG / one/Ac {Caps [place] Oxycodone etamin ule} Hospital Hydrochlori ophen de 5 MG Oral Tablet [Percocet] Oxycodone/A cetaminophe n duloxetine Duloxe CAPSULE, 60 mg ORAL complet [facility] 60 MG jordan DELAYED ed [place] Delayed Hcl RELEASE Hospital Release Oral Capsule [Cymbalta] Duloxetine Hcl Methocarbam Methoc TABLET 750 ORAL complet W bc ol 750 MG arbamo mg ed [place] Oral Tablet l Hospital [Robaxin] Methocarbam Methoc TABLET 750 ORAL complet W bc ol 750 MG arbamo mg ed [place] Oral Tablet l Hospital [Robaxin] Insurance Providers Payer name Policy type / Policy ID Covered Covered alliance party's Policy Plan Coverage type alliance party ID relationship to Silver Information silver BC OUT OF [id number] SP [id number] STATE 12 BLUE CROSS [id number] SP [id number] OUT OF 12 STATE BLUE CROSS [id number] SP [id number] POS 12 BLUE CROSS [id number] SP [id number] POS 12 BC OUT OF [id number] SP [id number] STATE 12 BLUE CROSS [id number] SP [id number] OUT OF 12 STATE BLUE CROSS [id number] PT [id number] PPO 12 BLUE CROSS [id number] SP [id number] HMO 12 BC OUT OF [id number] SP [id number] STATE 12 Problems, Conditions, and Diagnoses Code Display Name Description Problem Type Effective Dates Data Source(s) Z11.59 Encounter for Z11.59 Diagnosis 12/10/2019 [place] screening for other 09:35:00 AM EDT Hospital viral diseases M43.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, 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 Diagnosis 12/10/[address] [place] lumbar region 09:35:00 AM EDT Hospit al M54.10 Radiculopathy, site M54.10 Diagnosis 12/10/2019 [place] unspecified 09:35:00 AM EDT Hospital M51.16 Intervertebral disc M51.16 Diagnosis 05/28/2019 [place] disorders with 07:27:00 AM EST Hospi farhan radiculopathy, lumbar region M50.122 Cervical disc M50.122 Diagnosis 05/28/2019 [place] disorder at C5-C6 07:27:00 AM EST Ho spital level with radiculopathy R79.1 Abnormal coagulation R79.1 Diagnosis 05/19/2019 [place] profile 04:39:00 PM EST Hospital Z87.891 Personal history of Z87.891 Diagnosis 05/19/2019 [place] nicotine dependence 04:39:00 PM EST Hospital E03.9 Hypothyroidism, E03.9 Diagnosis 05/19/2019 [place] unspecified 04:39:00 PM EST Hospital I10 Essential (primary) I10 Diagnosis 05/19/2019 [place] hypertension 04:39:00 PM EST Hospita l M50.222 Other cervical disc M50.222 Diagnosis 05/19/2019 [place] displacement at C5-C6 04:39:00 PM ES T Hospital level M51.26 Other intervertebral M51.26 Diagnosis 05/19/2019 [place] disc displacement, 04:39:00 PM EST H ospital lumbar region Z01.812 Encounter for Z01.812 Diagnosis 05/07/2019 [place] preprocedural 10:42:00 AM EDT Hospit al laboratory examination Surgeries/Procedures Procedure Description Date Indications Data Source(s) Physical therapy procedure 05/29/2019 [facility] [place] (regime/therapy) 12:00:00 AM EST Hospital Incentive spirometry 05/28/2019 [place] (regime/therapy) 12:00:00 AM EST Hospital Physical therapy procedure 05/28/2019 [facility] [place] (regime/therapy) 12:00:00 AM EST Hospital Oxygen therapy (procedure) 05/28/2019 [facility] [place] 12:00:00 AM [facility] Hospital Diagnostic radiography of 05/28/2019 [facility] [place] lumbar spine, combined 12:00:00 AM [facility] Ho spital anteroposterior and lateral (procedure) Radiography of cervical 05/28/2019 [facility] [place] spine (procedure) 12:00:00 AM [facility] Hospita l Fluoroscopy (procedure) 05/28/2019 Celina culp [place] 12:00:00 AM [facility] Physical therapy procedure 05/21/2019 [facility] [place] (regime/therapy) 12:00:00 AM [facility] Physical therapy procedure 05/21/2019 [facility] [place] (regime/therapy) 12:00:00 AM [facility] Magnetic resonance imaging 05/19/2019 [facility] [place] of lumbar spine 12:00:00 AM [facility] (procedure) Magnetic resonance imaging 05/19/2019 [facility] [place] of lumbar spine 12:00:00 AM [facility] (procedure) Prothrombin time 05/18/2019 Tressa [place] s 12:00:00 AM [facility] Hospital Thromboplastin time 05/18/[address] [place] partial 12:00:00 AM [facility] Hospital Thromboplastin time 05/18/[address] [place] partial 12:00:00 AM [facility] Hospital Thromboplastin time 05/18/[address] [place] partial 12:00:00 AM [facility] Clot factor xii jesus 05/18/2019 [facility] e [place] 12:00:00 AM [facility] Hospital 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 05/18/2019 [place] 12:00:00 AM [facility] Clot factor ix 05/18/2019 [place] ptc/chrstmas 12:00:00 AM [facility] Hospital Clot factor viii vw 05/18/[address] [place] ristoctn 12:00:00 AM [facility] Hospital Clot factor viii ahg 1 05/18/2019 [place] stage 12:00:00 AM [facility] Clot factor viii 05/18/2019 Tressa Griffin s multimetric 12:00:00 AM [facility] Hospital Clot factor viii vw 05/18/[address] [place] antigen 12:00:00 AM [facility] Hospital Thromboplastin time 05/18/[address] [place] partial 12:00:00 AM [facility] Hospital Results ID Date Data Source [id number] 05/28/2019 08:51:00 AM [facility] Name Value Range Interpretation Description Data Sup porting Code Source(s) Document(s ) Choriogonadotropin NEGATIVE [place] ( test) [place] [Presence] in Urine Hospital ID Date Data Source [id number] 05/21/2019 10:21:00 AM [facility] Value Range Interpretation Description Data Sup porting Code Source(s) Document(s ) Platelet mean 9.3 fL [place] volume [facility] [Entitic volume] in Blood by Automated count ID Date Data Source [id number] 05/21/2019 10:21:00 AM [facility] Value Range Interpretation Description Data Sup porting Code Source(s) Document(s ) Platelets 260 [place] [#/volume] in 10*3/uL Hospital Blood by Automated count ID Date Data Source [id number] 05/21/2019 10:21:00 AM [facility] Value Range Interpretation Description Data Sup porting Code Source(s) Document(s ) Erythrocyte 18.6 % [facility] width [Ratio] by Automated count ID Date Data Source [id number] 05/21/2019 10:21:00 AM [facility] Value Range Interpretation Description Data Sup porting Code Source(s) Document(s ) Erythrocyte mean 32.4 [place] corpuscular g/dL Hospital hemoglobin concentration [Mass/volume] by Automated count ID Date Data Source [id number] 05/21/2019 10:21:00 AM [facility] Value Range Interpretation Description Data Sup porting Code Source(s) Document(s ) Erythrocyte 29.2 pg [facility] corpuscular hemoglobin [Entitic mass] by Automated count ID Date Data Source [id number] 05/21/2019 10:21:00 AM [facility] Name Value Range Interpretation Description Data Sup porting Code Source(s) Document(s ) Erythrocyte 90.2 fL [place] mean Hospital corpuscular volume [Entitic volume] by Automated count ID Date Data Source [id number] 05/21/2019 10:21:00 AM [facility] Value Range Interpretation Description Data Sup porting Code Source(s) Document(s ) Hematocrit 32.1 % [place] [Volume Hospital Fraction] of Blood by Automated count ID Date Data Source [id number] 05/21/2019 10:21:00 AM [facility] Value Range Interpretation Description Data Sup porting Code Source(s) Document(s ) Hemoglobin 10.4 g/dL [place] [Mass/volume] Hospital in Blood ID Date Data Source [id number] 05/21/2019 10:21:00 AM [facility] Value Range Interpretation Description Data Sup porting Code Source(s) Document(s ) Erythrocytes 3.56 [place] [#/volume] in 10*6/uL Hospital Blood by Automated count ID Date Data Source [id number] 05/21/2019 10:21:00 AM [facility] Value Range Interpretation Description Data Sup porting Code Source(s) Document(s ) Leukocytes 8.4 [place] [#/volume] in 10*3/uL Hospital Blood by Automated count ID Date Data Source [id number] 05/21/2019 10:21:00 AM [facility] Name Value Range Interpretation Description Data Sup porting Code Source(s) Document(s ) Platelet mean 9.3 fL [place] volume Hospital [Entitic volume] in Blood by Automated count ID Date Data Source [id number] 05/21/2019 10:21:00 AM [facility] Name Value Range Interpretation Description Data Sup porting Code Source(s) Document(s ) Platelets 260 [place] [#/volume] in 10*3/uL Hospital Blood by Automated count ID Date Data Source [id number] 05/21/2019 10:21:00 AM [facility] Value Range Interpretation Description Data Sup porting Code Source(s) Document(s ) Erythrocyte 18.6 % [place] distribution Hospital width [Ratio] by Automated count ID Date Data Source [id number] 05/21/2019 10:21:00 AM [facility] Value Range Interpretation Description Data Sup porting Code Source(s) Document(s ) Erythrocyte mean 32.4 [place] corpuscular g/dL Hospital hemoglobin concentration [Mass/volume] by Automated count ID Date Data Source [id number] 05/21/2019 10:21:00 AM [facility] Value Range Interpretation Description Data Sup porting Code Source(s) Document(s ) Erythrocyte 29.2 pg [facility] corpuscular hemoglobin [Entitic mass] by Automated count ID Date Data Source [id number] 05/21/2019 10:21:00 AM [facility] Value Range Interpretation Description Data Sup porting Code Source(s) Document(s ) Erythrocyte 90.2 fL [facility] corpuscular volume [Entitic volume] by Automated count ID Date Data Source [id number] 05/21/2019 10:21:00 AM [facility] Value Range Interpretation Description Data Sup porting Code Source(s) Document(s ) Hematocrit 32.1 % [place] [Volume Hospital Fraction] of Blood by Automated count ID Date Data Source [id number] 05/21/2019 10:21:00 AM [facility] Value Range Interpretation Description Data Sup porting Code Source(s) Document(s ) Hemoglobin 10.4 g/dL [place] [Mass/volume] Hospital in Blood ID Date Data Source [id number] 05/21/2019 10:21:00 AM [facility] Hospital Name Value Range Interpretation Description Data Sup porting Code Source(s) Document(s ) Erythrocytes 3.56 [place] [#/volume] in 10*6/uL Hospital Blood by Automated count ID Date Data Source [id number] 05/21/2019 10:21:00 AM [facility] Hospital Name Value Range Interpretation Description Data Sup porting Code Source(s) Document(s ) Leukocytes 8.4 [place] [#/volume] in 10*3/uL Hospital Blood by Automated count ID Date Data Source [id number] 05/20/2019 07:56:00 AM [facility] Hospital Name Value Range Interpretation Description Data Sup porting Code Source(s) Document(s ) Calcium 8.8 mg/dL [place] [Mass/volume Hospital ] in Serum or Plasma ID Date Data Source [id number] 05/20/2019 07:56:00 AM [facility] Name Value Range Interpretation Code Description Data Nya rce(s) Supporting Document(s ) Urea 18.0 [place] nitrogen/Cre Hospital atinine [Mass Ratio] in Serum or Plasma ID Date Data Source [id number] 05/20/2019 07:56:00 AM [facility] Hospital Name Value Range Interpretation Description Data Sup porting Code Source(s) Document(s ) Creatinine 0.5 mg/dL [place] [Mass/volume] Hospital in Serum or Plasma ID Date Data Source [id number] 05/20/2019 07:56:00 AM [facility] Hospital Name Value Range Interpretation Description Data Sup porting Code Source(s) Document(s ) Urea nitrogen 9 mg/dL [place] [Mass/volume] Hospital in Serum or Plasma ID Date Data Source [id number] 05/20/2019 07:56:00 AM [facility] Hospital Name Value Range Interpretation Code Description Data Nya rce(s) Supporting Document(s ) Anion gap in 10 [place] Serum or [facility] Plasma ID Date Data Source [id number] 05/20/2019 07:56:00 AM [facility] Hospital Name Value Range Interpretation Description Data Sup porting Code Source(s) Document(s ) Carbon 24 mmol/L [place] dioxide, Hospital total [Moles/volu me] in Serum or Plasma ID Date Data Source [id number] 05/20/2019 07:56:00 AM EST [place] [facility] Name Value Range Interpretation Description Data Sup porting Code Source(s) Document(s ) Chloride 107 [place] [Moles/volum mmol/L Hospital e] in Serum or Plasma ID Date Data Source [id number] 05/20/2019 07:56:00 AM [facility] Hospital Name Value Range Interpretation Description Data Sup porting Code Source(s) Document(s ) Potassium 4.0 [place] [Moles/volume mmol/L Hospital ] in Serum or Plasma ID Date Data Source [id number] 05/20/2019 07:56:00 AM EST [place] [facility] Name Value Range Interpretation Description Data Sup porting Code Source(s) Document(s ) Sodium 137 mmol/L [place] [Moles/volu Hospital me] in Serum or Plasma ID Date Data Source [id number] 05/20/2019 07:56:00 AM [facility] Hospital Name Value Range Interpretation Description Data Sup porting Code Source(s) Document(s ) Glucose 100 mg/dL [place] [Mass/volume Hospital ] in Serum or Plasma ID Date Data Source [id number] 05/20/2019 07:56:00 AM EST [place] [facility] Name Value Range Interpretation Description Data Sup porting Code Source(s) Document(s ) Calcium 8.8 mg/dL [place] [Mass/volume Hospital ] in Serum or Plasma ID Date Data Source [id number] 05/20/2019 07:56:00 AM EST [place] [facility] Name Value Range Interpretation Code Description Data Nya rce(s) Supporting Document(s ) Urea 18.0 [place] nitrogen/Cre Hospital atinine [Mass Ratio] in Serum or Plasma ID Date Data Source [id number] 05/20/2019 07:56:00 AM [facility] Name Value Range Interpretation Description Data Sup porting Code Source(s) Document(s ) Creatinine 0.5 mg/dL [place] [Mass/volume] Hospital in Serum or Plasma ID Date Data Source [id number] 05/20/2019 07:56:00 AM [facility] Hospital Name Value Range Interpretation Description Data Sup porting Code Source(s) Document(s ) Urea nitrogen 9 mg/dL [place] [Mass/volume] Hospital in Serum or Plasma ID Date Data Source [id number] 05/20/2019 07:56:00 AM [facility] Hospital Name Value Range Interpretation Code Description Data Nya rce(s) Supporting Document(s ) Anion gap in 10 [place] Serum or Hospital Plasma ID Date Data Source [id number] 05/20/2019 07:56:00 AM [facility] Hospital Name Value Range Interpretation Description Data Sup porting Code Source(s) Document(s ) Carbon 24 mmol/L [place] dioxide, Hospital total [Moles/volu me] in Serum or Plasma ID Date Data Source [id number] 05/20/2019 07:56:00 AM [facility] Name Value Range Interpretation Description Data Sup porting Code Source(s) Document(s ) Chloride 107 [place] [Moles/volum mmol/L Hospital e] in Serum or Plasma ID Date Data Source [id number] 05/20/2019 07:56:00 AM [facility] Name Value Range Interpretation Description Data Sup porting Code Source(s) Document(s ) Potassium 4.0 [place] [Moles/volume mmol/L Hospital ] in Serum or Plasma ID Date Data Source [id number] 05/20/2019 07:56:00 AM [facility] Value Range Interpretation Description Data Sup porting Code Source(s) Document(s ) Sodium 137 mmol/L [place] [Moles/volu Hospital me] in Serum or Plasma ID Date Data Source [id number] 05/20/2019 07:56:00 AM [facility] Name Value Range Interpretation Description Data Sup porting Code Source(s) Document(s ) Glucose 100 mg/dL [place] [Mass/volume Hospital ] in Serum or Plasma ID Date Data Source [id number] 05/19/2019 06:31:00 PM [facility] Value Range Interpretation Description Data Sup porting Code Source(s) Document(s ) Choriogonadotropin NEGATIVE [place] ( test) [place] [Presence] in Urine Hospital ID Date Data Source [id number] 05/19/2019 06:31:00 PM [facility] Value Range Interpretation Description Data Sup porting Code Source(s) Document(s ) Choriogonadotropin NEGATIVE [place] ( test) [place] [Presence] in Urine Hospital ID Date Data Source [id number] 05/19/2019 05:23:00 PM [facility] Value Range Interpretation Description Data Sup porting Code Source(s) Document(s ) URINE OCCASIONAL [place] EPITHELIAL Hospital CELLS ID Date Data Source [id number] 05/19/2019 05:23:00 PM [facility] Name Value Range Interpretation Description Data Sup porting Code Source(s) Document(s ) URINE OCCASIONAL [place] BACTERIA Hospital ID Date Data Source [id number] 05/19/2019 05:23:00 PM EST [facility] Name Value Range Interpretation Description Data Sup porting Code Source(s) Document(s ) Erythrocytes 0-3 [place] [#/area] in /[HPF] Hospital Urine sediment by Automated count ID Date Data Source [id number] 05/19/2019 05:23:00 PM [facility] Name Value Range Interpretation Description Data Sup porting Code Source(s) Document(s ) Leukocytes 0-3 [place] [#/area] in /[HPF] Hospital Urine sediment by Automated count ID Date Data Source [id number] 05/19/2019 05:23:00 PM [facility] Name Value Range Interpretation Description Data Sup porting Code Source(s) Document(s ) Leukocyte NEGATIVE [place] esterase Hospital [Presence] in Urine by Test strip ID Date Data Source [id number] 05/19/2019 05:23:00 PM [facility] Name Value Range Interpretation Description Data Sup porting Code Source(s) Document(s ) URINE NEGATIVE [place] NITRITES Hospital ID Date Data Source [id number] 05/19/2019 05:23:00 PM [facility] Name Value Range Interpretation Description Data Sup porting Code Source(s) Document(s ) Erythrocytes NEGATIVE [place] [#/volume] in Hospital Urine by Test strip ID Date Data Source [id number] 05/19/2019 05:23:00 PM EST [place] [facility] Name Value Range Interpretation Code Description Data Nya rce(s) Supporting Document(s ) Bilirubin. NEGATIVE [place] total Hospital [Presence] in Urine by Test strip ID Date Data Source [id number] 05/19/2019 05:23:00 PM EST [place] [facility] Name Value Range Interpretation Description Data Sup porting Code Source(s) Document(s ) Urobilinogen 0.2 [place] [Units/volume] mg/dL Hospital in Urine by Test strip ID Date Data Source [id number] 05/19/2019 05:23:00 PM EST [place] [facility] Name Value Range Interpretation Description Data Sup porting Code Source(s) Document(s ) Ketones NEGATIVE [place] [Mass[facility]volume [facility] ] in Urine by Test strip ID Date Data Source [id number] 05/19/2019 05:23:00 PM EST [place] [facility] Name Value Range Interpretation Description Data Sup porting Code Source(s) Document(s ) Glucose NEGATIVE [place] [[facility] ] in Urine by Test strip ID Date Data Source [id number] 05/19/2019 05:23:00 PM EST [place] [facility] Name Value Range Interpretation Code Description Data Nya rce(s) Supporting Document(s ) Protein TRACE [place] [Presence] Hospital in Urine by Test strip ID Date Data Source [id number] 05/19/2019 05:23:00 PM EST [place] [facility] Name Value Range Interpretation Code Description Data Nya rce(s) Supporting Document(s ) pH of Urine 8.5 [place] by Test Hospital strip ID Date Data Source [id number] 05/19/2019 05:23:00 PM EST [place] [facility] Name Value Range Interpretation Code Description Data Supporting Source(s) Document(s ) Specific 1.017 [place] gravity of Hospital Urine by Test strip ID Date Data Source [id number] 05/19/2019 05:23:00 PM [facility] Name Value Range Interpretation Description Data Sup porting Code Source(s) Document(s ) Clarity in Urine CLEAR [place] by [facility] automated ID Date Data Source [id number] 05/19/2019 05:23:00 PM [facility] Name Value Range Interpretation Code Description Data Nya rce(s) Supporting Document(s ) Color of YELLOW [place] Urine Hospital ID Date Data Source [id number] 05/19/2019 05:23:00 PM [facility] Name Value Range Interpretation Description Data Sup porting Code Source(s) Document(s ) URINE OCCASIONAL [place] EPITHELIAL [facility] CELLS ID Date Data Source [id number] 05/19/2019 05:23:00 PM [facility] Name Value Range Interpretation Description Data Sup porting Code Source(s) Document(s ) URINE OCCASIONAL [place] BACTERIA Hospital ID Date Data Source [id number] 05/19/2019 05:23:00 PM [facility] Name Value Range Interpretation Description Data Sup porting Code Source(s) Document(s ) Erythrocytes 0-3 [place] [#/area] in /[HPF] Hospital Urine sediment by Automated count ID Date Data Source [id number] 05/19/2019 05:23:00 PM [facility] Name Value Range Interpretation Description Data Sup porting Code Source(s) Document(s ) Leukocytes 0-3 [place] [#/area] in /[HPF] Hospital Urine sediment by Automated count ID Date Data Source [id number] 05/19/2019 05:23:00 PM [facility] Name Value Range Interpretation Description Data Sup porting Code Source(s) Document(s ) Leukocyte NEGATIVE [place] esterase Hospital [Presence] in Urine by Test strip ID Date Data Source [id number] 05/19/2019 05:23:00 PM [facility] Name Value Range Interpretation Description Data Sup porting Code Source(s) Document(s ) URINE NEGATIVE [place] NITRITE Hospital ID Date Data Source [id number] 05/19/2019 05:23:00 PM [facility] Name Value Range Interpretation Description Data Sup porting Code Source(s) Document(s ) Erythrocytes NEGATIVE [place] [#/volume] in Hospital Urine by Test strip ID Date Data Source [id number] 05/19/2019 05:23:00 PM [facility] Value Range Interpretation Code Description Data Nya rce(s) Supporting Document(s ) Bilirubin. NEGATIVE [place] total [facility] [Presence] in Urine by Test strip ID Date Data Source [id number] 05/19/2019 05:23:00 PM [facility] Name Value Range Interpretation Description Data Sup porting Code Source(s) Document(s ) Urobilinogen 0.2 [place] [Units/volume] mg/dL Hospital in Urine by Test strip ID Date Data Source [id number] 05/19/2019 05:23:00 PM [facility] Name Value Range Interpretation Description Data Sup porting Code Source(s) Document(s ) Ketones NEGATIVE [place] [Mass/volume [facility] ] in Urine by Test strip ID Date Data Source [id number] 05/19/2019 05:23:00 PM [facility] Name Value Range Interpretation Description Data Sup porting Code Source(s) Document(s ) Glucose NEGATIVE [place] [Mass[facility]volume [facility] ] in Urine by Test strip ID Date Data Source [id number] 05/19/2019 05:23:00 PM [facility] Name Value Range Interpretation Code Description Data Nya rce(s) Supporting Document(s ) Protein TRACE [place] [Presence] [facility] in Urine by Test strip ID Date Data Source [id number] 05/19/2019 05:23:00 PM [facility] Name Value Range Interpretation Code Description Data Nya rce(s) Supporting Document(s ) pH of Urine 8.5 [place] by Test Hospital strip ID Date Data Source [id number] 05/19/2019 05:23:00 PM [facility] Name Value Range Interpretation Code Description Data Supporting Source(s) Document(s ) Specific 1.017 [place] gravity of Hospital Urine by Test strip ID Date Data Source [id number] 05/19/2019 05:23:00 PM [facility] Name Value Range Interpretation Description Data Sup porting Code Source(s) Document(s ) Clarity in Urine CLEAR [place] by [facility] automated ID Date Data Source [id number] 05/19/2019 05:23:00 PM [facility] Name Value Range Interpretation Code Description Data Nya rce(s) Supporting Document(s ) Color of YELLOW [place] Urine Hospital ID Date Data Source [id number] 05/19/2019 05:22:00 PM [facility] THERAPEUTIC RANGES:UNFRACTIONATED HEPARI N THERAPY: 60-90 SECONDSARGATROBAN THERAPY: 49-99 SECONDS Name Value Range Interpretation Description Data Sup porting Code Source(s) Document(s ) aPTT in 38.1 s [place] Platelet poor [facility] plasma by Coagulation assay ID Date Data Source [id number] 05/19/2019 05:22:00 PM [facility] THERAPEUTIC RANGE FOR STANDARD ORALANTIC OAGULANT THERAPY: 2.0-3.0THERAPEUTIC RANGE FOR HIGH DOSE ORALANTICOAGULANT THERAPY (MECHANICAL HEARTVALVE REPLACEMENT): 2.5-3.5 Name Value Range Interpretation Description Data Sup porting Code Source(s) Document(s ) INR in Platelet 1.1 [place] poor plasma by [facility] Coagulation assay ID Date Data Source [id number] 05/19/2019 05:22:00 PM [facility] Name Value Range Interpretation Description Data Sup porting Code Source(s) Document(s ) PT panel - 12.0 s [place] Platelet poor [facility] plasma by Coagulation assay ID Date Data Source [id number] 05/19/2019 05:22:00 PM [facility] THERAPEUTIC RANGES:UNFRACTIONATED HEPARI N THERAPY: 60-90 SECONDSARGATROBAN THERAPY: 49-99 SECONDS Name Value Range Interpretation Description Data Sup porting Code Source(s) Document(s ) aPTT in 38.1 s [place] Platelet poor [facility] plasma by Coagulation assay ID Date Data Source [id number] 05/19/2019 05:22:00 PM [facility] THERAPEUTIC RANGE FOR STANDARD ORALANTIC OAGULANT THERAPY: 2.0-3.0THERAPEUTIC RANGE FOR HIGH DOSE ORALANTICOAGULANT THERAPY (MECHANICAL HEARTVALVE REPLACEMENT): 2.5-3.5 Name Value Range Interpretation Description Data Sup porting Code Source(s) Document(s ) INR in Platelet 1.1 [place] poor plasma by [facility] Coagulation assay ID Date Data Source [id number] 05/19/2019 05:22:00 PM [facility] Name Value Range Interpretation Description Data Sup porting Code Source(s) Document(s ) PT panel - 12.0 s [place] Platelet poor [facility] plasma by Coagulation assay ID Date Data Source [id number] 05/18/2019 12:15:00 PM [facility] Name Value Range Interpretation Description Data Sup porting Code Source(s) Document(s ) DRVVT MIX Not White INTERPRETATION Indicated [facility] ID Date Data Source [id number] 05/18/2019 12:15:00 PM [facility] This test was performed at: [facility] [address] Name Value Range Interpretation Description Data Sup porting Code Source(s) Document(s ) HEXAGONAL Negative [place] PHASE CONFIRM Hospital ID Date Data Source [id number] 05/18/2019 12:15:00 PM [facility] This test was performed at: [facility] [address] [place], [place] Name Value Range Interpretation Code Description Data Nya rce(s) Supporting Document(s ) DRVVT SCREEN 30 [facility] ID Date Data Source [id number] 05/18/2019 12:15:00 PM [facility] Name Value Range Interpretation Code Description Data Nya rce(s) Supporting Document(s ) PTT (LAC) 47 [facility] Hospital ID Date Data Source [id number] 05/18/2019 12:15:00 PM [facility] A Lupus Anticoaguant is not detected.Com mon causes for a prolonged screen and negativeconfirmatory test include factor deficiencies oranticoagulant therapy.Reference Range: Not DetectedFo r additional information, please refer tohttp://education.Triggit/ faq/PLO39q8(This link is being provided for informational/educational purposes only. )This interpretation is based on the following testresults. Name Value Range Interpretation Description Data Sup porting Code Source(s) Document(s ) LUPUS see note [place] ANTICOAGULANT Hospital EVAL ID Date Data Source [id number] 05/18/2019 12:15:00 PM [facility] All multimers of von Willebrand Factor A ntigen arepresent in normal amounts.Reviewed by Nikita Simpson M.D.This test was dev eloped and its analytical performancecharacteristics have been det ermined by [employer] [place], [place]. It hasnot been cleared or approved by the U.S. Food and DrugAdministration. This assay has been validated pursuantto the CLIA regulations and is used for clinicalpurposes. This test was performed at: [facility] [address] Name Value Range Interpretation Code Description Data Nya rce(s) Supporting Document(s ) VWF see note [facility] JOCELYN ID Date Data Source [id number] 05/18/2019 12:15:00 PM [facility] This test was performed at: [facility] [address] Name Value Range Interpretation Description Data Sup porting Code Source(s) Document(s ) VWF RISTOCETIN 56 [place] CO-FACTOR Hospital ID Date Data Source [id number] 05/18/2019 12:15:00 PM [facility] Name Value Range Interpretation Description Data Sup porting Code Source(s) Document(s ) VON WILLEBRAND 75 % [facility] Hospital ID Date Data Source [id number] 05/18/2019 12:15:00 PM [facility] For additional information please refer to:[email or web address] /faq/OKZ964(This link is being provided for informational/educational purposes only. ) --- 05/25/19 1647 ---FACTOR VIII ACT previously reported as: 56 % normalFor additional information please refer to:http://[employer].[email or web address] /faq/JWW534(This link is being provided for informational/educational purposes only. ) --- 05/25/19 1524 ---FACTOR VIII ACT previously reported as: 56 % normalFor additional information please refer to:http://[employer] /faq/TXC387(This link is being provided for informational/educational purposes only. ) --- 05/20/19 1621 ---FACTOR VIII ACT previously reported as: 56 % normalFor additional information please refer to:http://[employer] /faq/FVT378(This link is being provided for informational/educational purposes only. ) --- 05/20/19 1601 ---FACTOR VIII ACT previously reported as: 56 % normalFor additional information please refer to:http://[employer] /faq/WSN471(This link is being provided for informational/educational purposes only. ) This test was performed at: [facility] [address] Name Value Range Interpretation Code Description Data Nya rce(s) Supporting Document(s ) FACTOR VIII 56 [facility] ID Date Data Source [id number] 05/18/2019 12:15:00 PM [facility] This test has not been validated for mon itoringunfractionated heparin therapy. For testing thatis validated for this type o f therapy, please referto the Heparin Anti-Xa assay (test code 27808).For additional i nformation, please refer tohttp://[employer]/ faq/PHQ261(This link is being provided for informational/educat-ional purposes only .) Name Value Range Interpretation Code Description Data Nya rce(s) Supporting Document(s ) PTT,ACTIVA 38 [facility] ID Date Data Source [id number] 05/18/2019 12:15:00 PM [facility] 1. Prolonged aPTT2. No laboratory eviden ce of von Willebrand DiseaseComments:aPTT and/or PT results should be interpreted togetherand abnormal results confirmed with a new sample beforefurther investigation. A prolonged aPTT/normal PT maybe due to a factor deficiency (i.e. Factor VIII, IX, and XI - often associated with a bleeding history), aLupus Anticoagulant (often as ymptomatic or with ahistory of thrombosis) or anticoagulant therapy. Aprolonged aPTT/p rolonged PT may be due to vitamin Kdeficiency, hepatic insufficiency or an ticoagulanttherapy. Name Value Range Interpretation Description Data Sup porting Code Source(s) Document(s ) VW COMP see note [place] INTERPRETATION Hospital ID Date Data Source [id number] 05/18/2019 12:15:00 PM [facility] Units: % of normal Thi s test was performed at: [facility] [address] Name Value Range Interpretation Code Description Data Nya rce(s) Supporting Document(s ) FACTOR 91 % [place] IX,ACTIVITY Hospital ID Date Data Source [id number] 05/18/2019 12:15:00 PM [facility] For additional information please refer to:http://education.Triggit /faq/FCK292(This link is being provided for informational/educational purposes only. ) This test was performed at: [facility] [address] Name Value Range Interpretation Code Description Data Nya rce(s) Supporting Document(s ) FACTOR 56 [place] VIII,ACTIVIT Hospital Y ID Date Data Source [id number] 05/18/2019 12:15:00 PM [facility] This test was performed at: [facility] [address] Name Value Range Interpretation Code Description Data Nya rce(s) Supporting Document(s ) FACTOR 127 [place] XII,ACTIVITY Hospital ID Date Data Source [id number] 05/18/2019 12:15:00 PM [facility] Units: % of normal Thi s test was performed at: [facility] [address] Name Value Range Interpretation Code Description Data Nya rce(s) Supporting Document(s ) FACTOR 94 % [place] XI,ACTIVITY Hospital ID Date Data Source [id number] 05/18/2019 12:15:00 PM [facility] AN APTT OF 33.0 SEC. WAS OBTAINED FROM A 1:1 DILUTION OF PATIENT'S PLASMA WITH NORMAL PLASMA. CORRECTION NOTED.THROMBIN TIME TEST NOT PERFORMED- THE PRESENCE OF ANTICOAGULANT INHIBITOR DRUGS SUCH HE GERARDO OR DIRECT THROMBIN INHIBITORS CANNOT BE EXCLUDED. Name Value Range Interpretation Description Data Sup porting Code Source(s) Document(s ) CIRCULATING SEE [place] ANTICOAG COMMENT [facility] SCREEN ID Date Data Source [id number] 05/18/2019 12:15:00 PM [facility] Name Value Range Interpretation Description Data Sup porting Code Source(s) Document(s ) DRVVT MIX Not White INTERPRETATION [facility] Hospital ID Date Data Source [id number] 05/18/2019 12:15:00 PM [facility] This test was performed at: [facility] [address] Name Value Range Interpretation Description Data Sup porting Code Source(s) Document(s ) HEXAGONAL Negative [place] PHASE CONFIRM Hospital ID Date Data Source [id number] 05/18/2019 12:15:00 PM [facility] This test was performed at: [facility] [address] Name Value Range Interpretation Code Description Data Nya rce(s) Supporting Document(s ) DRVVT SCREEN 30 [facility] ID Date Data Source [id number] 05/18/2019 12:15:00 PM [facility] Name Value Range Interpretation Code Description Data Nya rce(s) Supporting Document(s ) PTT (LAC) 47 [facility] Hospital ID Date Data Source [id number] 05/18/2019 12:15:00 PM [facility] A Lupus Anticoaguant is not detected.Com mon causes for a prolonged screen and negativeconfirmatory test include factor deficiencies oranticoagulant therapy.Reference Range: Not DetectedFo r additional information, please refer tohttp://[employer]/ faq/MBT14i0(This link is being provided for informational/educational purposes only. )This interpretation is based on the following testresults. Name Value Range Interpretation Description Data Sup porting Code Source(s) Document(s ) LUPUS see note [place] ANTICOAGULANT Hospital EVAL ID Date Data Source [id number] 05/18/2019 12:15:00 PM [facility] This test was performed at: [facility] [address] Name Value Range Interpretation Description Data Sup porting Code Source(s) Document(s ) VWF RISTOCETIN 56 [place] CO-FACTOR Hospital ID Date Data Source [id number] 05/18/2019 12:15:00 PM [facility] Name Value Range Interpretation Description Data Sup porting Code Source(s) Document(s ) VON WILLEBRAND 75 % [place] FACTOR AG Hospital ID Date Data Source [id number] 05/18/2019 12:15:00 PM [facility] For additional information please refer to:http://[employer]Land /faq/DZL692(This link is being provided for informational/educational purposes only. ) --- 05/20/19 162 ---FACTOR VIII ACT previously reported as: 56 % normalFor additional information please refer to:http://[employer] /faq/ZUU891(This link is being provided for informational/educational purposes only. ) --- 05/20/19 160 ---FACTOR VIII ACT previously reported as: 56 % normalFor additional information please refer to:http://[employer] /faq/GXB759(This link is being provided for informational/educational purposes only. ) This test was performed at: [facility] [address] Name Value Range Interpretation Code Description Data Nya rce(s) Supporting Document(s ) FACTOR VIII 56 [facility] Hospital ID Date Data Source [id number] 05/18/2019 12:15:00 PM [facility] This test has not been validated for mon itoringunfractionated heparin therapy. For testing thatis validated for this type o f therapy, please referto the Heparin Anti-Xa assay (test code 18324).For additional i nformation, please refer tohttp://[employer].FORVM/ faq/FTR476(This link is being provided for informational/educat-ional purposes only .) Name Value Range Interpretation Code Description Data Nya rce(s) Supporting Document(s ) PTT,ACTIVA 38 [facility] ID Date Data Source [id number] 05/18/2019 12:15:00 PM [facility] Units: % of normal Thi s test was performed at: [facility] [address] Name Value Range Interpretation Code Description Data Nya rce(s) Supporting Document(s ) FACTOR 91 % [place] IX,ACTIVITY Hospital ID Date Data Source [id number] 05/18/2019 12:15:00 PM [facility] For additional information please refer to:[email or web address].[email or web address] /faq/BJV132(This link is being provided for informational/educational purposes only. ) This test was performed at: [facility] [address] Name Value Range Interpretation Code Description Data Nya rce(s) Supporting Document(s ) FACTOR 56 [place] VIII,ACTIVIT Hospital Y ID Date Data Source [id number] 05/18/2019 12:15:00 PM [facility] This test was performed at: [facility] [id number] [place] [address] Name Value Range Interpretation Code Description Data Nya rce(s) Supporting Document(s ) FACTOR 127 [place] XII,ACTIVITY Hospital ID Date Data Source [id number] 05/18/2019 12:15:00 PM [facility] Units: % of normal Thi s test was performed at: [facility] [address] [address] [place], [place] Name Value Range Interpretation Code Description Data Nya rce(s) Supporting Document(s ) FACTOR 94 % [place] XI,ACTIVITY Hospital ID Date Data Source [id number] 05/18/2019 12:15:00 PM [facility] AN APTT OF 33.0 SEC. WAS OBTAINED FROM A 1:1 DILUTION OF PATIENT'S PLASMA WITH NORMAL PLASMA. CORRECTION NOTED.THROMBIN TIME TEST NOT PERFORMED- THE PRESENCE OF ANTICOAGULANT INHIBITOR DRUGS SUCH HE GERARDO OR DIRECT THROMBIN INHIBITORS CANNOT BE EXCLUDED. Name Value Range Interpretation Description Data Sup porting Code Source(s) Document(s ) CIRCULATING SEE [facility] SCREEN ID Date Data Source [id number] 05/07/2019 10:46:00 AM EDT [facility] Name Value Range Interpretation Description Data Sup porting Code Source(s) Document(s ) ARRIVAL TIME [place] 9 10:23 Hospital ID Date Data Source [id number] 05/07/2019 10:46:00 AM EDT [facility] Name Value Range Interpretation Description Data Sup porting Code Source(s) Document(s ) ARRIVAL TIME [place] 9 10:23 Hospital Procedure Social History Code Duration Value Status Description Data Source(s ) Smoking 05/28/2019 Never smoked completed Never smoked [facility] [facility] AM EST tobacco tobacco (finding) [facility] ([facility]) Smoking 05/19/2019 Ex-smoker completed Ex-smoker (finding) [place] 06:44:00 PM EST (finding) Hospital Vital Signs ID Date Data Source UNK Name Value Range Interpretation Code Description Data Source(s) Diastolic blood 77 mm[Hg] 77 mm[Hg] [facility] Systolic blood 114 mm[Hg] 114 mm[Hg] [facility] Respiratory rate 18 /min 18 /min [facility] Heart rate 72 /min 72 /min [facility] Body temperature 36.56995 36.15381 [facility] Body temperature 97.9 [degF] 97.9 [degF] [facility] Body mass index 29.2 kg/m2 29.2 kg/m2 [facility] (BMI) [Ratio] Hospital Body weight 170 [lb_av] 170 [lb_av] [facility] Diastolic blood 69 mm[Hg] 69 mm[Hg] [facility] Systolic blood 106 mm[Hg] 106 mm[Hg] [facility] pressure Hospital Respiratory rate 18 /min 18 /min [facility] Heart rate 77 /min 77 /min [facility] Body temperature 36.41861 36.83316 [facility] Body temperature 98.1 [degF] 98.1 [degF] [facility] Body mass index 29.0 kg/m2 29.0 kg/m2 [facility] (BMI) [Ratio] Hospital Body weight 170.35 170.35 [lb_av] [facility] [lb_av] [facility]
[2020-04-23] MEDS ORDERED: KETOROLAC TROMETHAMINE 30 MG/1 ML VIAL IM ONE ×2 (12:09→14:17)
[2020-04-23] MEDS ORDERED: METHOCARBAMOL 500 MG TABLET PO ONE (12:09)
[2020-04-23] MEDS ORDERED: METHOCARBAMOL 500 MG TABLET ONE (12:17)
[2020-04-23] MEDS ORDERED: KETOROLAC TROMETHAMINE 30 MG/1 ML VIAL ONE ×2 (12:18→14:30)
--- NOTE | 2020-04-23 12:18 | PDOC ---
History of Present Illness - General Chief Complaint: Head/Neck problem Stated Complaint: KATHI EYE PRESSURE/NECK PAIN Time Seen by Provider: 04/23/20 12:02 History Source: Patient Exam Limitations: Clinical Condition - History of Present Illness Initial Comments: 04/23/20 12:12 Patient with past medical history of hypertension on amlodipine, hypothyroidism on Synthroid and spinal fusion surgery 10 months ago presented with complaint of worsening right-sided neck pain and headache with pressure behind the eye which has not responded to home oxycodone medication. Patient reported had dislocated spinal disks at C6 and lower back which required spinal surgery which was done last May without complication. Patient reported improvement in pain until 3 weeks ago when she started having persistent pain. Denies nausea, vomiting, dizziness, fever, chills, imbalance. Denies any other symptoms. Denies any new trauma or injury Is this a multiple visit Asthma Patient?: No Timing/Duration: other (2 weeks) Past History - Medical History Allergies/Adverse Reactions: Allergies Allergy/AdvReac Type Severity Reaction Status Date / Time No Known Allergies Allergy Verified 04/23/20 11:27 Home Medications: Ambulatory Orders Levothyroxine [Synthroid -] 112 mcg PO DAILY 02/19/18 Amlodipine Besylate [Norvasc -] 5 mg PO DAILY 05/06/19 Duloxetine HCl [Cymbalta -] 60 mg PO DAILY 05/06/19 Methocarbamol [Robaxin -] 500 mg PO TID PRN #21 tablet 04/23/20 Methylprednisolone [Medrol Dose Scottie] 4 mg PO ASDIR #21 tablet 04/23/20 Asthma: No Cancer: No Cardiac Disorders: No COPD: No Diabetes: Yes (GDM- ID) Disorders: No HTN: Yes (PREECLAMPSIA- 2010) Seizures: No Thyroid Disease: Yes (HYPOTHYROIDISM) - Surgical History Appendectomy: Yes - Reproductive History Is Patient Now?: No - Immunization History Immunization Up to Date: Yes - Psycho-Social/Smoking History Smoking Status: Yes Smoking History: Current every day smoker Have you smoked in the past 12 months: No Number of Cigarettes Smoked Daily: 3 If you are a former smoker, when did you quit?: LONG TIME Cigars Per Day: 0 Information on smoking cessation initiated: No - Substance Abuse Hx (Audit-C & DAST Scrn) How often the patient has a drink containing alcohol: 2-4 times / month Score: In Men: 4 or > Positive; In Women: 3 or > Positive: 2 Screen Result (Pos requires Nsg. Audit-10AR): Negative Review of Systems - Review of Systems Able to Perform ROS?: Yes Is the patient limited Surinamese proficient: No Constitutional: No: Chills, Fever, Malaise HEENTM: Yes: Symptoms Reported, See HPI, Other (neck pain). No: Eye Pain, Blurred Vision, Tearing, Recent change in vision, Double Vision, Cataracts, Ear Pain, Ocular Prothesis, Ear Discharge, Nose Pain, Nose Congestion, Tinnitus, Nose Bleeding, Hearing Loss, Throat Pain, Throat Swelling, Mouth Pain, Dental Problems, Difficulty Swallowing, Mouth Swelling Respiratory: No: Symptoms reported, See HPI, Cough, Orthopnea, Shortness of Breath, SOB with Exertion, SOB at Rest, Stridor, Wheezing, Productive cough, Hemoptysis, Other Cardiac (ROS): No: Symptoms Reported, See HPI, Chest Pain, Edema, Irregular Heart Rate, Lightheadedness, Palpitations, Syncope, Chest Tightness, Other ABD/GI: No: Symptoms Reported, Nausea, Vomiting Musculoskeletal: Yes: Symptoms Reported, See HPI, Neck Pain (right side neck pain) All Other Systems: Reviewed and Negative *Physical Exam - Vital Signs Last Vital Signs Temp Pulse Resp BP Pulse Ox 98 F 93 H 18 143/92 97 04/23/20 11:24 04/23/20 11:24 04/23/20 11:24 04/23/20 11:24 04/23/20 11:24 - Physical Exam 04/23/20 12:18 GENERAL: Well developed, well nourished. Awake and alert. No acute distress. HEENT: Normocephalic, atraumatic. PERRLA, EOMI. No conjunctival pallor. Sclera are non- icteric. Moist mucous membranes. Oropharynx is clear. NECK: Supple. Full ROM. No JVD. Carotid pulses 2+ and symmetric, without bruits. No lymphadenopathy. CARDIOVASCULAR: Regular rate and rhythm. No murmurs, rubs, or gallops. Distal pulses are 2+ and symmetric. PULMONARY: No evidence of respiratory distress. Lungs clear to auscultation bilaterally. No wheezing, rales or rhonchi. MUSCULOSKELETAL Normal range of motion at all joints. No bony deformities or tenderness. SKIN: Warm and dry. Normal capillary refill. No rashes. No jaundice. NEUROLOGICAL: Alert, awake, appropriate. Cranial nerves 2-12 intact. No deficits to light touch in face, upper extremities and lower extremities. No motor deficits in the in face, upper extremities and lower extremities. Normal speech. Gait is normal without ataxia. PSYCHIATRIC: Cooperative. Good eye contact. Appropriate mood and affect. General Appearance: Yes: Nourished, Appropriately Dressed, Apparent Distress, Mild Distress ED Treatment Course - RADIOLOGY Radiology Studies Ordered: Category Date Time Status CERVICAL SPINE CT W/O CONTR [CT] Stat CT Scan 04/23/20 12:[address] WITHOUT CONTRAST [CT] Stat CT Scan 04/23/20 12:10 Ordered Medical Decision Making - Medical Decision Making 04/23/20 12:14 Patient with past medical history of hypertension on amlodipine, hypothyroidism on Synthroid and spinal fusion surgery 10 months ago presented with complaint of worsening right-sided neck pain and headache with pressure behind the eye which has not responded to home oxycodone medication. Patient reported had dislocated spinal disks at C6 and lower back which required spinal surgery which was done last May without complication. Patient reported improvement in pain until 3 weeks ago when she started having persistent pain. Denies nausea, vomiting, dizziness, fever, chills, imbalance. Denies any other symptoms. Denies any new trauma or injury Exam significant for moderate subjective tenderness over right paracervical muscle of C6-C7 and posterior right shoulder. No tenderness to left side of neck or no midline tenderness. Pupil equal reflective to light bilateral. No tenderness to scalp. Decreased range of motion to right side of neck due to stiffness. Normal neuro exam. Patient walking with normal gait. Patient symptoms likely torticollis versus less likely intracranial abnormality. Toradol 30 mg IM ordered for pain and Robaxin 1000 mg p.o. ordered for spasm. CT of neck and head without contrast ordered to rule acute normality. Treat based on imaging results 04/23/20 14:48 Head and neck CAT scan shows no acute abnormality or fracture. Patient symptoms likely torticollis and stable for discharge on Medrol pack inflammatory effect and Robaxin for spasm with advised to do hot compresses with neurosurgery follow-up. Patient left department without complication in no acute distress Discharge - Discharge Information Problems reviewed: Yes Clinical Impression/Diagnosis: Muscle spasms of neck, Torticollis, spasmodic Spinal stenosis Qualifiers: Spinal region: cervical Qualified Code(s): M48.02 - Spinal stenosis, cervical region Condition: Stable Disposition: HOME - Admission No - Additional Discharge Information Prescriptions: Methylprednisolone [Medrol Dose Scottie] 4 mg PO ASDIR #21 tablet Methocarbamol [Robaxin -] 500 mg PO TID PRN #21 tablet PRN Reason: neck pain - Follow up/Referral Referrals: Wendy Garcia MD [Primary Care Provider] - Eulalio Camargo MD, FAANS [Staff Physician] - - Patient Discharge Instructions Patient Printed Discharge Instructions: DI for Torticollis Additional Instructions: CAT scan of your head and neck shows no acute abnormality or fracture or dislocation. Your pain is likely caused by muscle spasm. Take prescribed medication as prescribed for pain and spasm. Apply heat to neck area 2-3 times a day as needed for pain. Follow-up referred orthopedic neurosurgery specialist or your own orthopedic human services care specialist - Post Discharge Activity
== END 2020-04-23 14:50 | disposition home or self-care (01) ==
LOC: JER 11:21
PROC: 3E0233Z Introduction of Anti-inflammatory into Muscle, Percutaneous Approach (ICD-10-PCS; principal; 2020-04-23)
DX: M48.02 Spinal stenosis, cervical region (principal); M62.838 Other muscle spasm; M43.6 Torticollis
CPT/HCPCS: 70450-TC; 72125-TC; 99284-25

== ENCOUNTER 2021-07-28 11:39 | Emergency (ER) | payer BC ==
[2021-07-28 11:48] VITALS: BMI 30.5
[2021-07-28] MEDS ORDERED: DEXAMETHASONE LIQUID 0.5 MG/5 ML PO ONE (12:21)
[2021-07-28] MEDS ORDERED: ACETAMINOPHEN 325 MG TABLET (FP) PO ONE (12:40)
[2021-07-28] MEDS ORDERED: ACETAMINOPHEN 325 MG TABLET (FP) ONE (12:41)
[2021-07-28] MEDS ORDERED: DEXAMETHASONE 4 MG TABLET (FP) ONE (12:41)
[2021-07-28 13:07] LABS: BASO % 0.3 % (0-2.0); EOS % 0.1 % (0-4.5); HEMATOCRIT 35.4 % (32.4-45.2); LYMPH % 12.4 % (8-40); MCH 30.4 pg (25.7-33.7); MCHC 33.9 g/dl (32.0-36.0); MEAN CELL VOLUME 89.6 fl (80-96); MEAN PLT VOLUME 7.1 fl (7.5-11.1); MONO % 7.4 % (3.8-10.2); NEUT % 79.8 % (42.8-82.8); PLATELET COUNT 273 10^3/uL (134-434); RBC 3.95 M/mm3 (3.60-5.2); WHITE BLOOD COUNT 12.6 K/mm3 (4.0-10.0)
[2021-07-28 13:26] LABS: CALCIUM 8.5 mg/dL (8.5-10.1)
[2021-07-28 13:27] LABS: ALBUMIN 3.5 g/dl (3.4-5.0); BLOOD UREA NITROGEN 9.9 mg/dL (7-18)
[2021-07-28 13:30] LABS: CREATININE 0.6 mg/dL (0.55-1.3)
[2021-07-28 13:32] LABS: BILIRUBIN,TOTAL 0.4 mg/dL (0.2-1); TOT PROT 6.7 g/dl (6.4-8.2)
[2021-07-28] MEDS ORDERED: CLINDAMYCIN 900 MG PREMIX IVPB 900 MG/50 ML BAG IVPB ONE ×2 (15:20→15:23)
[2021-07-28 16:13] VITALS: BP 122/68; PULSE 89; TEMP 98.9
== END 2021-07-28 16:49 | disposition home or self-care (01) ==
LOC: JER 11:39
DX: J36 Peritonsillar abscess (principal)
CPT/HCPCS: 36415; 70491-TC; 80053; 84703; 85025; 99284-25; C9803; Q9967; U0003; U0005